=== PATIENT | female | born 1945 | race Caucasian/White ===

== ENCOUNTER 2018-09-23 10:30 | Inpatient (IN) ==
[2018-09-16 14:22] LABS: Basophils # (Auto) 0 K/mcL (0.0-0.3); Basophils % (Auto) 0.5 % (0.0-2.0); Eosinophils # (Auto) 0.3 K/mcL (0.0-0.7); Eosinophils % (Auto) 3.9 % (0.0-7.0); Granulocytes % (Auto) 53.9 % (38.0-78.0); Hematocrit 40.9 % (36.0-48.0); Hemoglobin 13.4 g/dL (12.0-15.0); Lymphocytes # (Auto) 2.7 K/mcL (1.5-4.8); Lymphocytes % (Auto) 36.5 % (15.5-49.0); Mean Cell Volume 87.6 fL (80.0-100.0); Mean Corpuscular HGB Conc 32.7 g/dL (31.0-36.0); Mean Platelet Volume 9.9 fL (7.4-10.4); Monocytes # (Auto) 0.4 K/mcL (0.1-0.9); Monocytes % (Auto) 5.2 % (1.0-12.0); Platelet Count 286 K/mcL (140-440); RBC 4.66 M/mcL (4.00-5.20); Red Cell Distribution Width 14.3 % (11.5-14.5); WBC 7.4 K/mcL (4.5-11.0)
[2018-09-16 14:49] LABS: Blood Urea Nitrogen 16 mg/dl (8-23); Calcium 8.9 mg/dl (8.6-10.4); Carbon Dioxide 23 mmol/L (22-30); Chloride 104 mmol/L (96-108); Glomerular Filtration Rate 64; Glucose 92 mg/dL (70-105); Potassium 3.9 mmol/L (3.3-5.1); Sodium 138 mmol/L (133-145)
[~2018-09-23 10:30] MED LIST: ceFAZolin 2 GM in DEXTROSE 5% IN WATER 50 ML IV SCH
[2018-09-23] MEDS ORDERED: SCOPOLAMINE 1 PATCH PATCH TOPICAL PRN (12:00)
[2018-09-23] MEDS ORDERED: IPRATROPIUM/ALBUTEROL 3 ML AMPUL.NEB NEB PRN ×2 (12:00→15:49)
[2018-09-23 13:18] LABS: Appearance,Urine CLEAR; Bilirubin,Urine NEG (NEG); Color,Urine YELLOW; Culture Indicated,Urine NO; Glucose,Urine (UA) NEGATIVE (NEG); Ketones,Urine NEG (NEG); Leukocyte Esterase,Urine NEG /uL (NEG); Nitrate,Urine NEG (NEG); Protein,Urine NEG (NEG); Urine Blood NEG mg/dL (<0.03); Urobilinogen,Urine NEG (NEG)
[2018-09-23] MEDS ORDERED: LIDOCAINE HCL/PF 100 MG/5 ML SYRINGE IV ONE (13:35)
[2018-09-23] MEDS ORDERED: PROPOFOL 200 MG/20 ML VIAL IV ONE (13:35)
[2018-09-23] MEDS ORDERED: HYDROmorphone 2 MG/ML VIAL IV ONE (13:35)
[2018-09-23] MEDS ORDERED: ROPIVACAINE HCL/PF 20 ML VIAL IJ ONE (13:35)
[2018-09-23] MEDS ORDERED: KETAMINE 100 MG/ML ML IV ONE (13:35)
[2018-09-23] MEDS ORDERED: MIDAZOLAM 2 MG/2 ML VIAL IV ONE (13:35)
[2018-09-23] MEDS ORDERED: DEXAMETHASONE 10 MG/ML VIAL IV ONE (13:35)
[2018-09-23] MEDS ORDERED: TRANEXAMIC ACID 1,000 MG/10 ML VIAL IV ONE ×2 (13:35→14:59)
[2018-09-23] MEDS ORDERED: fentaNYL 100 MCG/2 ML VIAL IV ONE (13:35)
[2018-09-23] MEDS ORDERED: ONDANSETRON 4 MG/2 ML VIAL IV ONE (13:35)
[2018-09-23] MEDS ORDERED: GLYCOPYRROLATE 0.2 MG/ML VIAL IV ONE (13:35)
[2018-09-23] MEDS ORDERED: GENTAMICIN SULFATE 800 MG/20 ML VIAL IR ONE (14:24)
--- NOTE | 2018-09-23 14:58 | Brief Operative Note ---
Date of procedure: 09/23/18 Pre-op diagnosis: left shoulder osteoarthritis, biceps tendonitis, rtc tear Post-op diagnosis: same Procedure: left reverse tsa, open biceps reinsertion Grafts/Implants: Yes Anesthesia: GETA Complications: none Surgeon: Juan Kebede Cigar Brander: Ruthann Gibbons Estimated blood loss (cc): 100 Specimens Removed/Pathology: none sent Condition: stable Disposition: PACU
[2018-09-23] MEDS ORDERED: POLYETHYLENE GLYCOL 3350 17 GM PACKET PO PRN (14:59)
[2018-09-23] MEDS ORDERED: FLEETS ADULT ENEMA PR PRN (14:59)
[2018-09-23] MEDS ORDERED: METHOCARBAMOL 750 MG TABLET PO PRN (14:59)
[2018-09-23] MEDS ORDERED: ONDANSETRON 4 MG ODT TABLET SL PRN (14:59)
[2018-09-23] MEDS ORDERED: HYDROcodone/APAP 10/325MG TABLET PO PRN (14:59)
[2018-09-23] MEDS ORDERED: BENZOCAINE/MENTHOL 1 LOZENGE PO PRN ×2 (14:59→15:49)
[2018-09-23] MEDS ORDERED: BISACODYL 10 MG SUPP.RECT PR PRN (14:59)
[2018-09-23] MEDS ORDERED: MAGNESIUM HYDROXIDE 30 ML ORAL.SUSP PO PRN (14:59)
--- NOTE | 2018-09-23 14:59 | Discharge Summary ---
Ortho Discharge - TSA - Patient Instructions Diet: Regular Diet Activity: non weight bearing Total Shoulder Protocol: Leave immobilizer in place except for bathing and ROM. Abduction pillow. Continue to wear sling until seen by physician. Codman Pendulum : These exercises use momentum produced by your body to move your shoulder joint. Bend your knees and shift your weight to your front leg, then back, allowing your arm to swing in the same directions. Using the same technique, alternately shift your weight between your right and left legs, allowing your arm to swing from side to side. These exercises are also performed in counterclockwise and clockwise circular motions. Typically these exercises are performed several times per day, for a set number repetitions or minutes, such as 20 times in a row or 5 minutes at a time. Dressing Care: May shower in 2 days - Follow Up Plan Follow Up Appointments: Juan Kebede MD [Physician] - 10/08/18 Disposition: Home, Self-Care Prognosis: Good Rehab Potential: Good I certify that the patient requires SNF services: No Overall status at discharge: patient is progressing back to baseline
[2018-09-23] MEDS ORDERED: COLCHICINE 0.6 MG TABLET PO PRN (15:02)
[2018-09-23] MEDS ORDERED: FLUTICASONE PROPIONATE SPRAY.NAS NS PRN (15:02)
[2018-09-23] MEDS ORDERED: ALPRAZolam 0.25 MG TABLET PO PRN (15:02)
--- NOTE | 2018-09-23 15:37 | Operative Note ---
DATE OF OPERATION: 09/23/2018 PREOPERATIVE DIAGNOSES: 1. Left shoulder advanced glenohumeral osteoarthritis. 2. Left shoulder rotator cuff tear. 3. Left shoulder proximal biceps tendinitis. POSTOPERATIVE DIAGNOSES: 1. Left shoulder advanced glenohumeral osteoarthritis. 2. Left shoulder rotator cuff tear. 3. Left shoulder proximal biceps tendinitis. PROCEDURE PERFORMED: 1. Left reverse total shoulder arthroplasty. 2. Left shoulder proximal biceps tenodesis. SURGEON: Smita Kebede M.D. GERMINATION WORKER SURGEON: Ruthann Gibbons PA-C. The PA's assistance was required for the safe and efficient completion of the entire case. This provider's expertise and technical skill were required throughout the case. The PA assisted with preoperative coordination, intraoperative retraction, wound closure, dressing and splint application, as well as postoperative documentation and care coordination. ANESTHESIA: General. ESTIMATED BLOOD LOSS: 100 mL. COMPLICATIONS: None noted. SPECIMENS REMOVED: None. DRAINS: None. IMPLANTS: DePuy Delta Xtend cementless Metaglene, HENRY-coated; DePuy Delta Xtend locking Metaglene screw 4.5 x 30 (x2) and 4.5 x 18 (x1) nonlocking; DePuy Delta Xtend glenosphere standard 38 mm; DePuy Delta Xtend modular humeral stem size 10, HENRY-coated, cementless; DePuy Delta Xtend modular eccentric epiphysis size 1 left, HENRY-coated, cementless; DePuy Delta Xtend humeral polyethylene cup standard 38, +3. INDICATIONS: The patient has had a longstanding history of worsening pain in the shoulder that has failed conservative treatment. Radiographs have confirmed advanced degenerative joint disease and a failed rotator cuff. After a long discussion about treatment options, the patient elected to proceed with a reverse total shoulder arthroplasty. The risks and benefits were discussed with the patient in detail including, but not limited to, the risks of anesthesia, problems with the heart or lungs related to anesthesia, infection, compromise or injury to the nerves and blood vessels, deep venous thrombosis, pulmonary embolism, pneumonia, continued pain after surgery, worsening pain or symptoms after surgery, swelling, loss of motion, instability, fracture, arm length discrepancy, and need for repeat surgery. DESCRIPTION OF PROCEDURE: The patient was seen in the preanesthesia waiting room where all questions were answered and the correct side and site were identified and marked. The patient was transferred to the operating room and administered the anesthetic and given preoperative antibiotics. A time-out was then called. The patient was placed in the modified beach chair position with all prominences well padded. The extremity was prepped and draped from the fingers up to the neck. A standard deltopectoral skin incision was created. Dissection was carried down to the deltopectoral groove and the cephalic vein was isolated medially and retracted laterally with the deltoid. Retractors were placed and the coracobrachialis was split up to the coracoacromial ligament allowing retraction of the conjoined tendon. We split the subscapularis 1 cm medial to the bicipital groove and extended the split into the rotator interval. This was tagged for later repair. The supraspinatus and infraspinatus had been previously torn and retracted. The biceps was cut and a soft tissue tenodesis was performed into the anterior shoulder with #2 FiberWire. A capsular release was performed in a posterior subperiosteal direction along the humerus. The humeral head was then dislocated. We established intramedullary access and hand reamed up to get good cortical chatter with the DePuy Delta XTEND reverse total shoulder instrumentation. We then used the intramedullary guide and set to about 5 degrees of retroversion. The proximal humerus cut was performed and osteophytes were removed. A metal protector plate was then placed. Attention was then turned to the glenoid. Retractors were placed for optimal visualization and the labrum was excised in its entirety. A centralizing Steinmann pin was placed just into the posterior inferior quadrant in a standard fashion. We reamed over the pin to remove all the cartilage and get to a good base for the prosthesis. The drill was then placed over for the central peg. A cementless Metaglene was then impacted into place. We then drilled, measured, and placed the four screws starting inferior, then superior, then anterior, and finally posterior. The superior locking screw was lined up at the base of the coracoid process. We then impacted the head onto the Metaglene and tightened down in a standard fashion. Attention was then turned back to the humerus. Proximal reaming was performed off the intramedullary guide into the humeral head, using the eccentric guide to allow best coverage. We again set version and broached up to a stable implant. Trials were placed and good tension, motion, and stability were obtained at this point. Trials were removed and the final press fit femoral prosthesis was impacted into place with measured version. The final polyethylene was placed and the shoulder was reduced and again checked for motion, tension, and stability. We irrigated with 3 liters of antibiotic saline and closed the subscapularis with # 2 FiberWire. We irrigated again and closed the deltopectoral interval with several # 0 Vicryl figure of eight sutures. The subcutaneous layer was closed with 2-0 Vicryl and the skin was closed with 4-0 Monocryl in a subcuticular fashion. A sterile pressure dressing was applied and the patient was placed into an abduction sling. All needle and sponge counts were correct. The patient was transferred to the recovery room in stable condition. [place]:suleiman Job ID: [id number] Doc ID: [id number] Smita Kebede MD
[2018-09-23] MEDS ORDERED: METHOCARBAMOL 1,000 MG/10 ML VIAL IV PRN (15:49)
[2018-09-23] MEDS ORDERED: NALOXONE HCL 0.4 MG/ML VIAL IV PRN (15:49)
[2018-09-23] MEDS ORDERED: ACETAMINOPHEN 1,000 MG/100 ML BOTTLE IV ONE (15:49)
[2018-09-23] MEDS ORDERED: ONDANSETRON 4 MG/2 ML VIAL IV PRN (15:49)
[2018-09-23] MEDS ORDERED: FLUMAZENIL 0.1 MG/ML ML IV PRN (15:49)
[2018-09-23] MEDS ORDERED: fentaNYL 100 MCG/2 ML VIAL IV PRN (15:49)
[2018-09-23] MEDS ORDERED: LACTATED RINGERS 250 ML IV PRN (15:49)
--- NOTE | 2018-09-23 15:59 | XRay Report ---
CLINICAL INFORMATION: Post-Op Total Shoulder COMPARISON: 05/28/2018 FINDINGS: Left total shoulder arthroplasty is anatomically aligned. No osseous abnormality. IMPRESSION: Negative Interpreted and Authenticated by: Juan Chandra 09/23/18
[2018-09-23] MEDS ORDERED: LACTATED RINGERS 1,000 ML IV SCH (16:00)
[2018-09-23] MEDS: ONDANSETRON 4 MG/2 ML VIAL IV PRN ×2 (17:45→22:03)
[2018-09-23] MEDS: 0.9 % SODIUM CHLORIDE 1,000 ML IV SCH (17:45)
[2018-09-23] MEDS ORDERED: SENNOSIDES 1 TABLET PO SCH (21:00)
[2018-09-23] MEDS ORDERED: amLODIPine 10 MG TABLET PO SCH (21:00)
[2018-09-23] MEDS ORDERED: ASPIRIN 325 MG ENTERIC COATED TABLET PO SCH (21:00)
[2018-09-23] MEDS ORDERED: LOSARTAN 50 MG TABLET PO SCH (21:00)
[2018-09-23] MEDS ORDERED: SIMVASTATIN 20 MG TABLET PO SCH (21:00)
[2018-09-23] MEDS: KETOROLAC 15 MG/ML VIAL IV PRN (22:04)
[2018-09-23] MEDS: ceFAZolin 1 GM VIAL IV SCH (22:27)
[2018-09-23] MEDS: DOCUSATE SODIUM 100 MG CAPSULE PO SCH (22:28)
[2018-09-23] MEDS: 0.9 % SODIUM CHLORIDE 10 ML SYRINGE IV SCH (23:38)
[2018-09-24] MEDS: 0.9 % SODIUM CHLORIDE 1,000 ML IV SCH ×2 (01:40→09:11)
[2018-09-24] MEDS: ONDANSETRON 4 MG/2 ML VIAL IV PRN (02:04)
[2018-09-24 05:43] LABS: Hematocrit 38.4 % (36.0-48.0); Hemoglobin 12.6 g/dL (12.0-15.0)
[2018-09-24] MEDS: 0.9 % SODIUM CHLORIDE 10 ML SYRINGE IV SCH (06:36)
[2018-09-24] MEDS: ceFAZolin 1 GM VIAL IV SCH (06:38)
[2018-09-24] MEDS ORDERED: SCOPOLAMINE 1 PATCH PATCH TOPICAL ONE (07:14)
[2018-09-24] MEDS ORDERED: OMEPRAZOLE 20 MG CAPSULE PO SCH (07:30)
[2018-09-24] MEDS ORDERED: LEVOTHYROXINE SODIUM 112 MCG TABLET PO SCH (07:30)
[2018-09-24] MEDS ORDERED: LEVOTHYROXINE 25 MCG TABLET PO SCH (07:30)
--- NOTE | 2018-09-24 07:46 | Orthopedic Progress Note ---
Subjective Patient information: Note initiated : 09/24/18 at 7:43 am Service Date, if different from initiated Date: [] Patient: Leslie Joseph 73 y/o F admitted on 09/23/18 for Left Reverse Total Shoulder Arthroplasty and Open . Chief Complaint: [POD #1 s/p left TSA Patient feeling quite nauseous throughout the night and throwing up. Denies dizziness, CP, SOB, numbness, tingling. Used IV morphine throughout the night as needed. Has some shoulder pain 07/30] Objective Vital signs: Vital Signs Temp Pulse Resp BP Pulse Ox 09/24/18 03:55 98.4 F 91 H 12 126/68 93 09/23/18 22:58 97.7 F 92 H 12 128/67 96 09/23/18 19:13 80 104/60 93 09/23/18 18:13 101 H 124/63 93 09/23/18 17:45 86 123/61 93 09/23/18 17:16 79 132/65 92 09/23/18 17:00 79 124/66 91 09/23/18 16:45 89 12 134/66 92 09/23/18 16:27 88 9 L 131/65 92 09/23/18 16:10 97.4 F 84 12 137/69 90 09/23/18 15:57 97.8 F 85 13 136/58 93 09/23/18 15:42 97.9 F 86 12 131/45 98 09/23/18 15:27 97.6 F 76 8 L 122/58 98 09/23/18 15:22 78 6 L 129/60 98 09/23/18 15:17 81 6 L 136/58 98 09/23/18 15:12 97.2 F 87 8 L 111/52 99 09/23/18 12:00 98.3 F 78 18 127/53 98 Intake and Output 09/23/18 09/24/18 09/24/18 21:59 05:59 13:59 Intake Total 1100 1140 Output Total 75 750 Balance 1025 390 Intake: IV 100 1040 Sodium Chloride 0.9% 1,000 ml @ 990 125 mls/hr IV .Q8H [facility] Rx#: [id number] Oral 100 IV - Manual Only 1000 Output: Void Amount 600 Emesis 75 150 Other: Urine Appearance Clear Urine Color Pale Urine Odor Normal Weight 217 lb 8 oz Intake & Output: Intake & Output 09/23/18 09/24/18 09/24/18 21:59 05:59 13:59 Intake Total 1100 1140 Output Total 75 750 Balance 1025 390 Weight 217 lb 8 oz Intake: IV 100 1040 Sodium Chloride 0.9% 1,000 ml @ 990 125 mls/hr IV .Q8H [facility] Rx#: [id number] Oral 100 IV - Manual Only 1000 Output: Void Amount 600 Emesis 75 150 Other: Urine Appearance Clear Urine Color Pale Urine Odor Normal Incision: Yes healing, No draining, No red, No swollen, No inflamed, Yes clean and dry Incision clean and dry: Yes Dressing: Yes clean, Yes dry, Yes intact Weight bearing status: non Neurological exam IM: Yes alert, Yes oriented X3, Yes motor sensory intact, Yes neurovascular intact - Periperhal Pulses Peripheral pulses: 2+: radial (L), radial (R) - Labs CBC & BMP: 09/24/18 04:15 09/16/18 11:24 Labs: 09/24/18 09/16/18 04:15 11:25 Hgb 12.6 13.4 Hct 38.4 40.9 Assessment and Plan (1) Osteoarthritis, shoulder POD #1 s/p left TSA: -will watch nausea and emesis. If stops, patient may d/c to home. Zofran Rx to home. Scope patch placed here today -NWB in sling -PT -pain control -f/u in 10-14 days for PO Status: Acute
[2018-09-24] MEDS ORDERED: POTASSIUM 99 MG PO SCH (09:00)
[2018-09-24] MEDS: KETOROLAC 15 MG/ML VIAL IV PRN (09:16)
[2018-09-24] MEDS: DOCUSATE SODIUM 100 MG CAPSULE PO SCH (09:46)
== END 2018-09-24 10:20 | disposition home or self-care (01) | DRG 483 ==
LOC: MEDSUR 11:52
PROVIDERS: ADMIT Orthopaedic Surgery Sports Medicine; ATTEND Orthopaedic Surgery Sports Medicine

== ENCOUNTER 2021-03-24 04:31 | Inpatient (IN) ==
--- NOTE | 2021-03-24 04:42 | Emergency Department Note ---
HPI General Chief complaint: Weakness Stated complaint: Weakness and dizzy after surgery Time Seen by Provider: 03/24/21 04:39 Source: patient Mode of arrival: EMS Limitations: no limitations History of Present Illness HPI Narrative: 75-year-old female with lumbar spinal stenosis and chronic back pain, anxiety, hypothyroidism, hypertension, and gout presenting with generalized weakness. She had a left hip replacement on Saturday and was discharged Saturday. Since she has been at home she has felt very weak and nauseous. She also feels like her chronic low back pain is flaring up. States she had one episode of vomiting this week after taking a pain pill. She reports cramping in her legs and feels dehydrated. Denies any fall or injury. No headache, blurry vision, cough, shortness of breath, abdominal pain, dysuria, or hematuria. States she takes an 81mg aspirin twice daily. Related Data Home Medications Medication Instructions Recorded Confirmed alprazolam 0.25 mg tablet 0.25 mg PO DAILYP PRN 07/03/18 03/20/21 aspirin 325 mg tablet 325 mg PO HS 07/03/18 03/20/21 colchicine 0.6 mg capsule 0.6 mg PO DAILYP PRN 07/03/18 03/20/21 losartan 100 mg tablet 100 mg PO HS 07/03/18 03/20/21 simvastatin 20 mg tablet 20 mg PO HS 07/03/18 03/20/21 acetaminophen 500 mg tablet 500 - 1,000 mg PO BIDP PRN 09/16/18 03/20/21 estradiol 1 mg tablet 1 mg PO QAM 09/16/18 03/20/21 multivitamin-iron 9 mg-folic acid 1 tab PO HS 09/16/18 03/20/21 400 mcg-calcium and minerals tablet ibuprofen 200 mg capsule 200 mg PO Q4HP PRN cap 11/16/20 03/20/21 loratadine 10 mg tablet (Claritin) 10 mg PO QAM 11/16/20 03/20/21 montelukast 10 mg tablet 10 mg PO QHS 11/16/20 03/20/21 potassium chloride 10 mEq 10 meq PO DAILYP PRN 11/16/20 03/20/21 capsule,extended release torsemide 20 mg tablet 10 mg PO DAILYP PRN tab 11/16/20 03/20/21 cholecalciferol (vitamin D3) 25 25 mcg PO QAM 03/13/21 03/20/21 mcg (1,000 unit) capsule (Vitamin D3) levothyroxine 150 mcg tablet 150 mcg PO QAMAC 03/13/21 03/20/21 magnesium 250 mg tablet 500 mg PO QAM 03/13/21 03/20/21 methocarbamol 500 mg tablet 500 mg PO QHS 03/13/21 03/20/21 omeprazole 20 mg capsule,delayed 20 mg PO QAM 03/13/21 03/20/21 release potassium 99 mg tablet 99 mg PO QAM 03/13/21 03/20/21 Previous Rx's Medication Instructions Recorded aspirin 81 mg tablet,delayed 81 mg PO BID #60 tab 03/20/21 release (Ecotrin Low Strength) docusate sodium 100 mg capsule 100 mg PO BID #60 cap 03/20/21 hydrocodone 10 mg-acetaminophen 1 - 2 tab PO Q4HP PRN #75 tab 03/20/21 325 mg tablet ondansetron HCl 4 mg tablet 4 mg PO Q6H PRN #25 tab 03/21/21 (Zofran) Allergies Allergy/AdvReac Type Severity Reaction Status Date / Time tramadol AdvReac Intermediate Panic Verified 03/24/21 04:34 attacks codeine [Codeine] AdvReac Mild Nausea Verified 03/24/21 04:34 phenytoin [From Dilantin] AdvReac Mild MOUTH SORES Verified 03/24/21 04:34 Review of Systems ROS ROS Narrative: Narrative: Constitutional: Denies fever or chills Eyes: Denies vision change ENT ED: Denies throat pain Cardiovascular: Denies chest pain, palpitations or syncope Respiratory: Denies shortness of breath or cough Gastrointestinal: Reports nausea and vomiting; Denies abdominal pain Genitourinary: Denies dysuria or frequency Musculoskeletal: Reports back pain and muscle cramps Integumentary: Denies rash Neurological: Reports weakness and dizziness; Denies headache, numbness or confusion Psychiatric: Denies anxiety Endocrine: Reports fatigue PFSH Narrative Patient History Narrative: Narrative: Medical/Surgical/Family History All Active Problems (Updated 03/24/21 @ 06:56 by Chad Mckeon MD) Hyponatremia (Acute) Other low back pain (Acute) Morbid obesity (Chronic) Lumbar stenosis with neurogenic claudication (Chronic) Radiculopathy, lumbar region (Acute) Anxiety (Chronic) Hypothyroidism (Chronic) Essential hypertension (Chronic) GERD (gastroesophageal reflux disease) (Chronic) Hormone replacement therapy (Chronic) Mixed hyperlipidemia (Chronic) Venous stasis of both lower extremities (Chronic) Tendonitis of shoulder, left (Chronic) Gout (Chronic) CASTA[place]EDA (dyspnea on exertion) (Chronic) Lightheadedness (Chronic) Sinus headache (Chronic) Shoulder joint painful on movement (Chronic) Post menopausal syndrome (Chronic) Impacted cerumen (Chronic) Claustrophobia (Chronic) Allergic conjunctivitis (Chronic) Hyponatremia (Chronic) Generalized anxiety disorder (Chronic) Dyslipidemia (Chronic) Candidal intertrigo (Chronic) Lumbar spinal stenosis (Chronic) Urinary tract infection (Chronic) Bilateral leg cramps (Chronic) Osteoarthritis, shoulder (Chronic) Medical History (Updated 03/24/21 @ 06:56 by Chad Mckeon MD) Allergic conjunctivitis Anxiety Bilateral leg cramps Candidal intertrigo Claustrophobia CASTAÑEDA (dyspnea on exertion) Dyslipidemia Essential hypertension Generalized anxiety disorder GERD (gastroesophageal reflux disease) Gout Hormone replacement therapy Hyponatremia Hypothyroidism Impacted cerumen Lightheadedness Lumbar spinal stenosis Lumbar stenosis with neurogenic claudication Mixed hyperlipidemia Morbid obesity Osteoarthritis, shoulder Post menopausal syndrome Shoulder joint painful on movement Sinus headache Tendonitis of shoulder, left Urinary tract infection Venous stasis of both lower extremities Surgical History (Updated 12/06/20 @ 10:59 by Sanjuana Deras) History of section 1976, 1983 History of cholecystectomy (~1993) History of colonoscopy (05/08/18) History of esophagogastroduodenoscopy (EGD) (07/07/13) History of hysterectomy (~2000) History of knee surgery (10/01/06) bilateral replacements History of left shoulder replacement (09/23/18) History of tonsillectomy and adenoidectomy History of tubal ligation (~1983) Family History (Updated 11/16/20 @ 12:35 by Diamante Rose) Sister Myocardial infarction, Onset Age: 50 Arthritis Fibromyalgia Parkinsons disease, Onset Age: 57 Tremor Thyroid disorder Brother Alcoholism Cirrhosis of liver, Onset Age: 71 Tremor Father , age 77 Head and neck cancer Mother , age 48 Depression Thyroid disorder Daughter Depression Thyroid disorder Social History Smoking Status: Never smoker Alcohol Intake Frequency: does not drink Substance Use: does not use Exam Narrative Narrative: Narrative: General Limitations: no limitations General appearance: Present alert and in no apparent distress Head Head: Present atraumatic and normocephalic Eye Eye: Present normal appearance, PERRL and EOMI; Absent scleral icterus, conjunctival injection or nystagmus ENT ENT: Present mucous membranes moist Neck Neck: Present full ROM and trachea midline Chest Chest: Present symmetric chest wall rise Respiratory Respiratory: Present normal lung sounds bilaterally; Absent respiratory distress, wheezes, stridor or accessory muscle use Cardiovascular Cardiovascular: Present regular rate and normal rhythm; Absent systolic murmur or diastolic murmur Adbominal Abdominal: Present soft; Absent distention, tenderness, guarding, rebound or rigidity Extremities Extremities: Present other (Trace bilateral lower extremity edema. Left hip postsurgical site bandage is clean, without drainage or blood) Back Back: Absent CVA tenderness (R), CVA tenderness (L) or spinous process tenderness Neurological Neurological: Present alert, oriented X3 and CN II-XII intact; Absent motor sen kait deficit Expanded Neurological Patient oriented to: Present person, place and time Speech: Absent dysarthria CEREBELLAR FUNCTION: finger to nose: Normal Motor strength - LUE: 5/5 Motor strength - RUE: 5/5 Motor strength - LLE: 5/5 Motor strength - RLE: 5/5 SENSORY EXAM UPPER EXTREMITY: Normal: light touch SENSORY EXAM LOWER EXTREMITY: Normal: light touch Coma Scale Eye Opening: Spontaneous Coma Scale Motor Response: Obeys Commands Coma Scale Verbal Response: Oriented Coma Scale Total: 15 Psychiatric Psychiatric: Present normal affect and normal mood Skin Skin: Present warm (WNL) and dry Course Consultations Consultation #1: Dr. Sumner, hospitalist Time: 06:50 Vital Signs Vital signs: Vital Signs Temperature 97.7 F 03/24/21 04:35 Pulse Rate 104 H 03/24/21 04:35 Blood Pressure 139/65 03/24/21 04:35 Pulse Oximetry (%) 98 03/24/21 04:35 Temperature 97.7 F 03/24/21 04:51 Pulse Rate 91 H 03/24/21 06:43 Respiratory Rate 16 03/24/21 04:51 Blood Pressure 143/54 03/24/21 06:31 Pulse Oximetry (%) 94 03/24/21 06:43 MDM MDM Narrative Medical decision making narrative: 75-year-old female presenting with generalized weakness and feelings of dehydration. Vital signs are normal. No focal neurologic deficits on exam. Surgical site appears well-healing. EKG with no ischemic changes. Will obtain labs, chest x-ray, and UA. Normal saline bolus and IV morphine ordered. Labs notable for hyponatremia to 124. She does have a mild leukocytosis to 13 but this is in the setting of recent surgery. Given her generalized weakness and hyponatremia will admit for hydration and further management. UA is pending. Patient endorsed to Dr. Sumner for admission. Lab Data Lab results reviewed: Yes I reviewed the patient's lab results. Result diagrams: 03/24/21 05:26 03/24/21 05:25 Labs: Lab Results 03/24/21 03/24/21 03/24/21 Range/Units 05:25 05:26 05:26 WBC 13.0 H (4.5-11.0) K/mcL RBC 3.61 (3.59-5.38) M/mcL Hgb 10.1 L (11.2-15.7) g/dL Hct 31.7 L (34.1-44.9) % MCV 87.8 (80.0-100.0) fL MCH 28.0 (26.0-34.0) pg MCHC 31.9 (31.0-36.0) g/dL RDW 13.7 (11.5-14.5) % Plt Count 312 (140-440) K/mcL MPV 10.6 H (7.4-10.4) fL Neut % (Auto) 80.9 H (38.0-78.0) % Lymph % (Auto) 9.3 L (15.5-49.0) % [place]aca % (Auto) 7.1 (1.0-12.0) % Eos % (Auto) 2.2 (0.0-7.0) % Baso % (Auto) 0.5 (0.0-2.0) % Lymph # (Auto) 1.21 L (1.50-4.80) K/mcL [place] # (Auto) 0.92 H (0.10-0.90) K/mcL Eos # (Auto) 0.29 (0.00-0.70) K/mcL Baso # (Auto) 0.06 (0.00-0.30) K/mcL Absolute Neutrophils 10.55 H (1.80-8.00) K/mcL Sodium 124 L (133-145) mmol/L Potassium 4.0 (3.3-5.1) mmol/L Chloride 90 L (96-108) mmol/L Carbon Dioxide 23 (22-30) mmol/L Anion Gap 11.0 (8.0-16.0) BUN 21 (8-23) mg/dL Creatinine 1.1 (0.6-1.1) mg/dL GFR Calculation 49 Glucose 138 H (70-105) mg/dL Calcium 9.0 (8.6-10.4) mg/dL Magnesium 1.9 (1.6-2.5) mg/dL Total Bilirubin 0.5 (0.1-1.0) mg/dL AST 52 H (<32) U/L ALT 19 (<40) U/L Alkaline Phosphatase 99 (39-117) U/L Troponin T < 0.01 (<0.03) ng/mL Total Protein 6.9 (5.9-8.4) gm/dL Albumin 3.5 (3.2-5.2) gm/dL Globulin 3.4 (2.2-3.7) gm/dL Albumin/Globulin Ratio 1.0 (1.0-2.3) Radiology Data Radiology results reviewed: Yes I reviewed the patient's radiology results. Radiology results narrative: CXR: No focal infiltrate, per my interpretation. EKG Data EKG #1: EKG attestation: Yes I reviewed and interpreted this EKG. and Yes There are no EKG findings of acute coronary syndrome EKG results narrative: Normal sinus rhythm at [address] elevation or depression. Evidence of LVH. Interpretation: no acute changes Discharge Plan Patient/Caregiver Discharge Instructions Pt seen by BIODIESEL PRODUCT DEVELOPMENT MANAGER/PA only: No Clinical Impression: Hyponatremia Patient Disposition: Xfer As Inpt ([facility]) Condition: Fair Follow up with: Tiffanie Ortiz MD [Primary Care Provider] - Prescriptions: No Action loratadine [Claritin] 10 mg tablet 10 mg PO QAM 0RF ibuprofen 200 mg capsule 200 mg PO Q4HP PRN (Reason: Pain) 0RF montelukast 10 mg tablet 10 mg PO QHS 0RF potassium chloride 10 mEq capsule, extended release 10 meq PO DAILYP PRN (Reason: Edema) 0RF Rx Instructions: Take with waterpill torsemide 20 mg tablet 10 mg PO DAILYP PRN (Reason: Edema) 0RF simvastatin 20 mg tablet 20 mg PO HS 0RF losartan 100 mg tablet 100 mg PO HS 0RF aspirin 325 mg tablet 325 mg PO HS 0RF Label Comments: HOLDING FOR SURGERY alprazolam 0.25 mg tablet 0.25 mg PO DAILYP PRN (Reason: Anxiety) 0RF colchicine 0.6 mg capsule 0.6 mg PO DAILYP PRN (Reason: GOUT) 0RF acetaminophen 500 MG tablet 500 - 1,000 mg PO BIDP PRN (Reason: Pain) 0RF estradiol 1 MG tablet 1 mg PO QAM 0RF jfuddijq-wbsr-KH-calcium-mins 1 TAB tablet 1 tab PO HS 0RF methocarbamol 500 mg Tablet 500 mg PO QHS 0RF potassium 99 mg Tablet 99 mg PO QAM 0RF Rx Instructions: Take when not taking waterpill omeprazole 20 mg Capsule,Delayed Release(Dr/Ec) 20 mg PO QAM 0RF magnesium 250 mg Tablet 500 mg PO QAM 0RF cholecalciferol (vitamin D3) [Vitamin D3] 25 mcg (1,000 unit) Capsule 25 mcg PO QAM 0RF levothyroxine 150 mcg Tablet 150 mcg PO QAMAC 0RF docusate sodium 100 mg Capsule 100 mg PO BID Qty: 60 0RF hydrocodone-acetaminophen 10-325 mg Tablet 1 - 2 tab PO Q4HP PRN (Reason: Per Pain Protocol) Qty: 75 0RF aspirin [Ecotrin Low Strength] 81 mg tablet,delayed release (DR/EC) 81 mg PO BID Qty: 60 0RF ondansetron HCl [Zofran] 4 mg Tablet 4 mg PO Q6H PRN (Reason: Nausea) Qty: 25 0RF
[2021-03-24] MEDS ORDERED: morphine 4 MG/ML VIAL IV ONE (04:48)
[2021-03-24] MEDS ORDERED: 0.9 % SODIUM CHLORIDE 1,000 ML IV ONE (04:48)
[2021-03-24 05:50] LABS: Basophils # (Auto) 0.06 K/mcL (0.00-0.30); Basophils % (Auto) 0.5 % (0.0-2.0); Eosinophils # (Auto) 0.29 K/mcL (0.00-0.70); Eosinophils % (Auto) 2.2 % (0.0-7.0); Hematocrit 31.7 % (34.1-44.9); Hemoglobin 10.1 g/dL (11.2-15.7); Lymphocytes # (Auto) 1.21 K/mcL (1.50-4.80); Lymphocytes % (Auto) 9.3 % (15.5-49.0); Mean Cell Volume 87.8 fL (80.0-100.0); Mean Corpuscular HGB Conc 31.9 g/dL (31.0-36.0); Mean Platelet Volume 10.6 fL (7.4-10.4); Monocytes # (Auto) 0.92 K/mcL (0.10-0.90); Monocytes % (Auto) 7.1 % (1.0-12.0); Neutrophils % (Auto) 80.9 % (38.0-78.0); Platelet Count 312 K/mcL (140-440); RBC 3.61 M/mcL (3.59-5.38); Red Cell Distribution Width 13.7 % (11.5-14.5)
[2021-03-24 06:16] LABS: ALT/SGPT 19 U/L (<40); AST/SGOT 52 U/L (<32); Albumin 3.5 gm/dL (3.2-5.2); Alkaline Phosphatase 99 U/L (39-117); Bilirubin,Total 0.5 mg/dL (0.1-1.0); Blood Urea Nitrogen 21 mg/dL (8-23); Carbon Dioxide 23 mmol/L (22-30); Chloride 90 mmol/L (96-108); Globulin 3.4 gm/dL (2.2-3.7); Glomerular Filtration Rate 49; Glucose 138 mg/dL (70-105)
--- NOTE | 2021-03-24 06:38 | XRay Report ---
INDICATION: weakness, recent hip replacement TECHNIQUE: AP portable semiupright chest x-ray COMPARISON: Previous examination dated 06/04/2009 FINDINGS: Lungs:Mild linear density at the left lung base consistent with atelectasis. Lungs are otherwise negative. Heart, vascular:No significant cardiomegaly. Pulmonary vascularity is normal. No pulmonary edema or pulmonary congestion Mediastinum, brianne:No mediastinal widening. No hilar mass Pleura:No pleural fluid. No pleural-based mass or calcification Skeletal:Negative. Previous left reverse shoulder arthroplasty IMPRESSION: 1. Findings consistent with mild left basilar atelectasis 2. Otherwise negative AP chest x-ray Interpreted and Authenticated by: Juan Holloway 03/24/21
[2021-03-24] MEDS ORDERED: ACETAMINOPHEN 650 MG/65 ML BAG IV PRN (08:03)
[2021-03-24] MEDS ORDERED: MAGNESIUM SULFATE 2 GM/50 ML BAG IV PRN (08:03)
[2021-03-24] MEDS ORDERED: POLYETHYLENE GLYCOL 3350 17 GM PACKET PO PRN (08:03)
[2021-03-24] MEDS ORDERED: MELATONIN 3 MG TABLET PO PRN (08:03)
[2021-03-24] MEDS ORDERED: ACETAMINOPHEN 325 MG TABLET PO PRN (08:03)
[2021-03-24] MEDS ORDERED: POTASSIUM CHLORIDE 40 MEQ in DEXTROSE 5% IN WATER 500 ML IV PRN (08:03)
[2021-03-24] MEDS ORDERED: BISACODYL 10 MG SUPP.RECT PR PRN (08:03)
[2021-03-24] MEDS ORDERED: ONDANSETRON 4 MG/2 ML VIAL IV PRN (08:03)
--- NOTE | 2021-03-24 08:06 | Internal Med History&Physical ---
HPI History of Present Illness Patient information: Note initiated : 03/24/21 at 8:06 am Service Date, if different from initiated Date: [] Patient: Leslie Joseph a 75 y/o F admitted on for Weakness and dizzy after surgery. Chief Complaint: [] History of present illness: Ms. Joseph is a 75 year old F who lives with her daughter in [place] and with a complex medical history including lumbar spinal stenosis chronic lower back pain, gout, hypertension, anxiety disorder, hypothyroidism who presents to the ER after recent hospitalization for left hip arthroplasty a week ago. Patient complains that ever since discharge she has been getting increasingly fatigued and weak unable to function along with progressive lower back pain, nausea. She has been taking her medications but has experienced associated loss of appetite, malaise along with associated lower extremity cramping. She presents to the ER for evaluation. Initial work-up was consistent with medical hyponatremia at 124 compared to recent level 135 on 03/13. Hospital service was consulted in light of above/symptomatic hyponatremia At the time of my evaluation patient is alert but anxious. She complains of lower back pain. She received a dose of morphine which has helped take the edge off pain. She denies bladder or bowel incontinence or unilateral leg weakness. She denies shooting pain, endorses to weakness fatigue but has been able to bear weight since surgery. She denies cough, fever, chest pain, recent sick contacts Review of systems A 10 point review of system was performed and is negative except for ones discussed above PFSH PFSH All Active Problems (Updated 03/24/21 @ 06:56 by Chad Mckeon MD) Hyponatremia (Acute) Other low back pain (Acute) Morbid obesity (Chronic) Lumbar stenosis with neurogenic claudication (Chronic) Radiculopathy, lumbar region (Acute) Anxiety (Chronic) Hypothyroidism (Chronic) Essential hypertension (Chronic) GERD (gastroesophageal reflux disease) (Chronic) Hormone replacement therapy (Chronic) Mixed hyperlipidemia (Chronic) Venous stasis of both lower extremities (Chronic) Tendonitis of shoulder, left (Chronic) Gout (Chronic) [place] (dyspnea on exertion) (Chronic) Lightheadedness (Chronic) Sinus headache (Chronic) Shoulder joint painful on movement (Chronic) Post menopausal syndrome (Chronic) Impacted cerumen (Chronic) Claustrophobia (Chronic) Allergic conjunctivitis (Chronic) Hyponatremia (Chronic) Generalized anxiety disorder (Chronic) Dyslipidemia (Chronic) Candidal intertrigo (Chronic) Lumbar spinal stenosis (Chronic) Urinary tract infection (Chronic) Bilateral leg cramps (Chronic) Osteoarthritis, shoulder (Chronic) Medical History (Updated 03/24/21 @ 06:56 by Chad Mckeon MD) Allergic conjunctivitis Anxiety Bilateral leg cramps Candidal intertrigo Claustrophobia [place] (dyspnea on exertion) Dyslipidemia Essential hypertension Generalized anxiety disorder GERD (gastroesophageal reflux disease) Gout Hormone replacement therapy Hyponatremia Hypothyroidism Impacted cerumen Lightheadedness Lumbar spinal stenosis Lumbar stenosis with neurogenic claudication Mixed hyperlipidemia Morbid obesity Osteoarthritis, shoulder Post menopausal syndrome Shoulder joint painful on movement Sinus headache Tendonitis of shoulder, left Urinary tract infection Venous stasis of both lower extremities Surgical History (Updated 12/06/20 @ 10:59 by Sanjuana Deras) History of section 1976, 1983 History of cholecystectomy (~1993) History of colonoscopy (05/08/18) History of esophagogastroduodenoscopy (EGD) (07/07/13) History of hysterectomy (~2000) History of knee surgery (10/01/06) bilateral replacements History of left shoulder replacement (09/23/18) History of tonsillectomy and adenoidectomy History of tubal ligation (~1983) Family History (Updated 11/16/20 @ 12:35 by Diamante Rose) Sister Myocardial infarction, Onset Age: 50 Arthritis Fibromyalgia Parkinsons disease, Onset Age: 57 Tremor Thyroid disorder Brother Alcoholism Cirrhosis of liver, Onset Age: 71 Tremor Father , age 77 Head and neck cancer Mother , age 48 Depression Thyroid disorder Daughter Depression Thyroid disorder Social History (Updated 12/06/20 @ 11:00 by Sanjuana Deras) household members: family marital status: education level: master's degree occupational status: retired 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 smoking status: Never smoker alcohol intake frequency: does not drink substance use type: does not use MEDS/ALLERGIES Home Medications and Allergies Home Medications Medication Instructions Recorded Confirmed Type alprazolam 0.25 mg tablet 0.25 mg PO DAILYP PRN 07/03/18 03/24/21 History aspirin 325 mg tablet 325 mg PO HS 07/03/18 03/24/21 History colchicine 0.6 mg capsule 0.6 mg PO DAILYP PRN 07/03/18 03/24/21 History losartan 100 mg tablet 100 mg PO HS 07/03/18 03/24/21 History simvastatin 20 mg tablet 20 mg PO HS 07/03/18 03/24/21 History acetaminophen 500 mg tablet 500 - 1,000 mg PO BIDP PRN 09/16/18 03/24/21 History estradiol 1 mg tablet 1 mg PO QAM 09/16/18 03/24/21 History multivitamin-iron 9 mg-folic acid 1 tab PO DAILY 09/16/18 03/24/21 History 400 mcg-calcium and minerals tablet ibuprofen 200 mg capsule 200 mg PO Q4HP PRN cap 11/16/20 03/24/21 History loratadine 10 mg tablet (Claritin) 10 mg PO QAM 11/16/20 03/24/21 History montelukast 10 mg tablet 10 mg PO QHS 11/16/20 03/24/21 History potassium chloride 10 mEq 10 meq PO DAILYP PRN 11/16/20 03/24/21 History capsule,extended release torsemide 20 mg tablet 10 mg PO DAILYP PRN tab 11/16/20 03/24/21 History cholecalciferol (vitamin D3) 25 25 mcg PO QAM 03/13/21 03/24/21 History mcg (1,000 unit) capsule (Vitamin D3) levothyroxine 150 mcg tablet 150 mcg PO QAMAC 03/13/21 03/24/21 History magnesium 250 mg tablet 500 mg PO QAM 03/13/21 03/24/21 History methocarbamol 500 mg tablet 500 mg PO QHS 03/13/21 03/24/21 History omeprazole 20 mg capsule,delayed 20 mg PO QAM 03/13/21 03/24/21 History release potassium 99 mg tablet 99 mg PO QAM 03/13/21 03/24/21 History aspirin 81 mg tablet,delayed 81 mg PO BID #60 tab 03/20/21 03/24/21 Rx release (Ecotrin Low Strength) docusate sodium 100 mg capsule 100 mg PO BID #60 cap 03/20/21 03/24/21 Rx hydrocodone 10 mg-acetaminophen 1 - 2 tab PO Q4HP PRN #75 tab 03/20/21 03/24/21 Rx 325 mg tablet ondansetron HCl 4 mg tablet 4 mg PO Q6H PRN #25 tab 03/21/21 03/24/21 Rx (Zofran) Allergies Allergy/AdvReac Type Severity Reaction Status Date / Time tramadol AdvReac Intermediate Panic Verified 03/24/21 04:34 attacks codeine [Codeine] AdvReac Mild Nausea Verified 03/24/21 04:34 phenytoin [From Dilantin] AdvReac Mild MOUTH SORES Verified 03/24/21 04:34 EXAM Constitutional Vitals: Temp Pulse Resp BP Pulse Ox 97.7 F 91 H 16 143/54 94 03/24/21 04:51 03/24/21 06:43 03/24/21 04:51 03/24/21 06:31 03/24/21 06:43 Morbidly obese, anxious Head normocephalic Oral cavity moist No ear or nose discharge Eye no subconjunctival pallor, movement symmetrical S1-S2 regular Nonlabored breathing Nondistended nontender abdomen Lower extremity no cyanosis clubbing or joint swelling Skin no suspicious lesion Psych anxious Neuro GCS 12, symmetric strength DATA Data Completed and Pending Labs: Labs from last 24 hours 03/24/21 03/24/21 03/24/21 07:19 05:26 05:26 WBC 13.0 H RBC 3.61 Hgb 10.1 L Hct 31.7 L MCV 87.8 MCH 28.0 MCHC 31.9 RDW 13.7 Plt Count 312 MPV 10.6 H Neut % (Auto) 80.9 H Lymph % (Auto) 9.3 L [place] % (Auto) 7.1 Eos % (Auto) 2.2 Baso % (Auto) 0.5 Lymph # (Auto) 1.21 L [place] # (Auto) 0.92 H Eos # (Auto) 0.29 Baso # (Auto) 0.06 Absolute Neutrophils 10.55 H Sodium Potassium Chloride Carbon Dioxide Anion Gap BUN Creatinine GFR Calculation Glucose Calcium Magnesium Total Bilirubin AST ALT Alkaline Phosphatase Troponin T < 0.01 Total Protein Albumin Globulin Albumin/Globulin Ratio Urine Color Pending Urine Appearance Pending Urine pH Pending Ur Specific [place] Pending Urine Protein Pending Urine Glucose (UA) Pending Urine Ketones Pending Urine Occult Blood Pending Urine Nitrate Pending Urine Bilirubin Pending Urine Urobilinogen Pending Ur Leukocyte Esterase Pending 03/24/21 05:25 WBC RBC Hgb Hct MCV MCH MCHC RDW Plt Count MPV Neut % (Auto) Lymph % (Auto) [place] % (Auto) Eos % (Auto) Baso % (Auto) Lymph # (Auto) [place] # (Auto) Eos # (Auto) Baso # (Auto) Absolute Neutrophils Sodium 124 L Potassium 4.0 Chloride 90 L Carbon Dioxide 23 Anion Gap 11.0 BUN 21 Creatinine 1.1 GFR Calculation 49 Glucose 138 H Calcium 9.0 Magnesium 1.9 Total Bilirubin 0.5 AST 52 H ALT 19 Alkaline Phosphatase 99 Troponin T Total Protein 6.9 Albumin 3.5 Globulin 3.4 Albumin/Globulin Ratio 1.0 Urine Color Urine Appearance Urine pH Ur Specific [place] Urine Protein Urine Glucose (UA) Urine Ketones Urine Occult Blood Urine Nitrate Urine Bilirubin Urine Urobilinogen Ur Leukocyte Esterase A/P Narrative A/P Narrative: * Symptomatic hyponatremia, rule out SIADH. Urine serum osmolarity/every 4 sodium checks. * Recent left total hip arthroplasty-continue physical therapies * Lumbar spinal stenosis/lower back pain continue home dose opioids/lidocaine patch/physical therapy * Hyperlipemia continue statin * Morbid obesity frequent turning/repositioning/decubitus care and maintain fall risk. Directed therapies including dietary interventions * GERD continue PPI * Hypertension continue losartan * Hypothyroidism continue thyroxine * History of gout currently stable * Prophylaxis Heparin Plan * Inpatient admission * Telemetry monitoring * Every 4 sodium checks * Pre-existing medical condition management home medication * PT OT/directed therapies/nutrition support * Discharge planning Time Spent With Patient Time: Total time spent is greater than 50% in coordination of care (as documented) at patient's floor/unit and/or counseling patient: Total time spent with greater than 50% in coordination of care (as documented) at patient's floor/unit and/or counseling patient:: Greater than 35 minutes
[2021-03-24 09:06] LABS: Appearance,Urine CLEAR (Clear); Bilirubin,Urine Negative (Negative); Color,Urine STRAW; Culture Indicated,Urine No; Glucose,Urine (UA) Negative (Negative); Ketones,Urine Negative (Negative); Leukocyte Esterase,Urine Negative /uL (Negative); Nitrate,Urine Negative (Negative); Protein,Urine Negative (Negative); Specific Gravity,Urine 1.008 (1.000-1.035); Urine Blood 0.03 mg/dL (Negative); Urine RBC 1 /hpf (0-3); Urine Squamous Epithelial Cell 2 /hpf (0-4); Urine WBC < 1 /hpf (0-4); Urobilinogen,Urine Negative
[2021-03-24] MEDS: 0.9 % SODIUM CHLORIDE 1,000 ML IV SCH (09:56)
[2021-03-24] MEDS ORDERED: ACETAMINOPHEN 500 MG TABLET PO PRN (11:12)
[2021-03-24] MEDS ORDERED: COLCHICINE 0.6 MG CAPSULE PO PRN (11:12)
[2021-03-24] MEDS ORDERED: ONDANSETRON HCL 4 MG PO PRN (11:12)
[2021-03-24] MEDS ORDERED: TORSEMIDE 10 MG TABLET PO PRN (11:18)
[2021-03-24] MEDS ORDERED: POTASSIUM CHLORIDE 10 MEQ TABLET PO PRN (11:19)
[2021-03-24] MEDS: HEPARIN 5,000 UNIT/ML VIAL SQ SCH ×2 (12:11→21:09)
[2021-03-24] MEDS: 0.9 % SODIUM CHLORIDE 10 ML SYRINGE IV SCH ×2 (12:12→21:10)
[2021-03-24] MEDS: DOCUSATE SODIUM 100 MG CAPSULE PO SCH ×3 (12:12→21:10)
[2021-03-24] MEDS: MULTIVIT,THER IRON,CA,FA & MIN 1 TABLET PO SCH (12:12)
[2021-03-24] MEDS: morphine 2 MG/ML VIAL IV PRN ×4 (12:14→23:31)
[2021-03-24] MEDS: HYDROcodone/APAP 10/325MG TABLET PO PRN ×3 (13:21→18:38)
[2021-03-24] MEDS: ONDANSETRON 4 MG ODT TABLET SL PRN ×2 (17:36→22:05)
[2021-03-24] MEDS ORDERED: HYDROcodone/APAP 10/325MG TABLET PO ONE (17:38)
[2021-03-24] MEDS ORDERED: LIDOCAINE PATCH TOPICAL ONE (20:54)
[2021-03-24] MEDS ORDERED: NON FORMULARY MEDICATION 1 DOSE MISCELL (Aspirin [Ecotrin Low Strength] 81 mg tablet,delay PO SCH (21:00)
[2021-03-24] MEDS ORDERED: morphine 2 MG/ML VIAL ONE (21:06)
[2021-03-24] MEDS: LOSARTAN 50 MG TABLET PO SCH (21:09)
[2021-03-24] MEDS: SENNOSIDES/DOCUSATE SODIUM 1 TAB TABLET PO SCH (21:09)
[2021-03-24] MEDS: MONTELUKAST 10 MG TABLET PO SCH (21:09)
[2021-03-24] MEDS: METHOCARBAMOL 500 MG TABLET PO SCH (21:10)
[2021-03-24] MEDS: ASPIRIN 325 MG ENTERIC COATED TABLET PO SCH (21:10)
[2021-03-24] MEDS: SIMVASTATIN 20 MG TABLET PO SCH (21:10)
[2021-03-25] MEDS: HYDROcodone/APAP 10/325MG TABLET PO PRN ×5 (02:55→21:42)
[2021-03-25] MEDS: 0.9 % SODIUM CHLORIDE 1,000 ML IV SCH (06:25)
[2021-03-25] MEDS: 0.9 % SODIUM CHLORIDE 10 ML SYRINGE IV SCH ×3 (06:25→21:44)
[2021-03-25 07:09] LABS: Basophils # (Auto) 0.07 K/mcL (0.00-0.30); Basophils % (Auto) 0.8 % (0.0-2.0); Eosinophils # (Auto) 0.48 K/mcL (0.00-0.70); Eosinophils % (Auto) 5.7 % (0.0-7.0); Lymphocytes # (Auto) 1.84 K/mcL (1.50-4.80); Mean Cell Volume 88.6 fL (80.0-100.0); Mean Corpuscular HGB Conc 32.1 g/dL (31.0-36.0); Mean Platelet Volume 10.2 fL (7.4-10.4); Monocytes # (Auto) 0.94 K/mcL (0.10-0.90); Monocytes % (Auto) 11.2 % (1.0-12.0); Neutrophils % (Auto) 60.3 % (38.0-78.0); Platelet Count 310 K/mcL (140-440); RBC 3.16 M/mcL (3.59-5.38); Red Cell Distribution Width 14.1 % (11.5-14.5); WBC 8.4 K/mcL (4.5-11.0)
[2021-03-25 07:33] LABS: ALT/SGPT 18 U/L (<40); AST/SGOT 48 U/L (<32); Albumin 2.9 gm/dL (3.2-5.2); Alkaline Phosphatase 87 U/L (39-117); Bilirubin,Direct < 0.2 mg/dL (0-0.3); Bilirubin,Total 0.4 mg/dL (0.1-1.0); Blood Urea Nitrogen 13 mg/dL (8-23); Calcium 8.5 mg/dL (8.6-10.4); Carbon Dioxide 22 mmol/L (22-30); Chloride 99 mmol/L (96-108); Glomerular Filtration Rate 73; Glucose 104 mg/dL (70-105); Lactate Dehydrogenase 386 U/L (135-225); Phosphorous 1.9 mg/dL (2.5-4.5); Triglycerides 93 mg/dL (<150); Uric Acid 4.8 mg/dL (2.5-8.0)
[2021-03-25] MEDS: LEVOTHYROXINE 150 MCG TABLET PO SCH (08:00)
[2021-03-25] MEDS: DOCUSATE SODIUM 100 MG CAPSULE PO SCH ×5 (08:53→21:42)
[2021-03-25] MEDS: MULTIVIT,THER IRON,CA,FA & MIN 1 TABLET PO SCH ×2 (09:04→09:07)
[2021-03-25] MEDS: ESTRADIOL 1 MG TABLET PO SCH (09:04)
[2021-03-25] MEDS: MAGNESIUM OXIDE 400 MG TABLET PO SCH (09:04)
[2021-03-25] MEDS: OMEPRAZOLE 20 MG CAPSULE PO SCH (09:04)
[2021-03-25] MEDS: LORATADINE 10 MG TABLET PO SCH (09:04)
[2021-03-25] MEDS: VITAMIN D3 25 MCG TABLET PO SCH (09:04)
[2021-03-25] MEDS: HEPARIN 5,000 UNIT/ML VIAL SQ SCH ×2 (09:10→21:43)
--- NOTE | 2021-03-25 09:14 | Internal Med Progress Note ---
SUBJECTIVE Subjective Patient information: Note initiated : 03/25/21 at 9:10 am Service Date, if different from initiated Date: [] Patient: Leslie Joseph a 75 y/o F admitted on 03/24/21 for Weakness and dizzy after surgery. Chief Complaint: [] Interval history: Ms. Joseph is a 75 year old F who lives with her daughter in [place] and with a complex medical history including lumbar spinal stenosis chronic lower back pain, gout, hypertension, anxiety disorder, hypothyroidism who presents to the ER after recent hospitalization for left hip arthroplasty a week ago. Patient complains that ever since discharge she has been getting increasingly fatigued and weak unable to function along with progressive lower back pain, nausea. She has been taking her medications but has experienced associated loss of appetite, malaise along with associated lower extremity cramping. She presents to the ER for evaluation. Initial work-up was consistent with medical hyponatremia at 124 compared to recent level 135 on 03/13. Hospital service was consulted in light of above/symptomatic hyponatremia At the time of my evaluation patient is alert but anxious. She complains of lower back pain. She received a dose of morphine which has helped take the edge off pain. She denies bladder or bowel incontinence or unilateral leg weakness. She denies shooting pain, endorses to weakness fatigue but has been able to bear weight since surgery. She denies cough, fever, chest pain, recent sick contacts 03/25-patient clinically improved. Sodium up from 1 24-1 32. Improved cramps and fatigue and lethargic. Feeling a lot better. Will undergo physical therapy. Denies postoperative pain, chest pain, shortness of breath. No active concerns per staff. Low phosphorus start replacement. Constitutional Vitals: Vital Signs Temp Pulse Resp BP Pulse Ox 98.5 F 83 18 150/72 95 03/25/21 06:40 03/25/21 06:40 03/25/21 06:40 03/25/21 06:40 03/25/21 06:40 Period Temp Pulse Resp BP Sys/Brink Pulse Ox Last 24 Hr 96.9 F-99.1 F 75-100 16-20 123-164/48-101 92-100 Intake and Output 03/24/21 03/25/21 03/25/21 21:59 05:59 13:59 Intake Total 1400 200 Output Total 700 550 Balance 700 -350 Weight 117.118 kg alert oriented Nonlabored breathing No anxiety No lymphedema Intake & Output: Intake & Output 03/24/21 03/25/21 03/25/21 21:59 05:59 13:59 Intake Total 1400 200 Output Total 700 550 Balance 700 -350 Weight 117.118 kg Intake: IV 1000 Sodium Chloride 0.9% 1,000 ml @ 1000 50 mls/hr IV .Q20H [facility] Rx#: [id number] Oral 400 200 Output: Void Amount 700 550 Other: Meal Breakfast Percent of Meal Consumed 75% Feeding Ability Independent Nourishment/Supplement name . Urine Appearance Clear Clear Urine Color Straw Bright Yellow Urine Odor Normal Stool Size Small Stool Color Yellow Stool Consistency Soft # Voids 2 3 # Bowel Movements 1 OBJ DATA Labs CBC & Chem 7: 03/25/21 05:14 03/25/21 05:14 Labs: Abnormal Lab Results 03/25/21 03/25/21 03/24/21 05:14 05:14 23:50 WBC RBC 3.16 L Hgb 9.0 L Hct 28.0 L MPV Neut % (Auto) Lymph % (Auto) Lymph # (Auto) [place] # (Auto) 0.94 H Absolute Neutrophils Sodium 132 L 129 L Chloride Glucose Osmolality Calcium 8.5 L Phosphorus 1.9 L AST 48 H Lactate Dehydrogenase 386 H Albumin 2.9 L 03/24/21 03/24/21 03/24/21 19:48 13:13 09:29 WBC RBC Hgb Hct MPV Neut % (Auto) Lymph % (Auto) Lymph # (Auto) [place] # (Auto) Absolute Neutrophils Sodium 126 L 128 L Chloride Glucose Osmolality 273 L Calcium Phosphorus AST Lactate Dehydrogenase Albumin 03/24/21 03/24/21 05:26 05:25 WBC 13.0 H RBC Hgb 10.1 L Hct 31.7 L MPV 10.6 H Neut % (Auto) 80.9 H Lymph % (Auto) 9.3 L Lymph # (Auto) 1.21 L [place] # (Auto) 0.92 H Absolute Neutrophils 10.55 H Sodium 124 L Chloride 90 L Glucose 138 H Osmolality Calcium Phosphorus AST 52 H Lactate Dehydrogenase Albumin Meds: Medications Acetaminophen (Acetaminophen 325 Mg Tablet) 650 mg PO Q4-6HP PRN; Protocol PRN Reason: Per Pain Protocol/Fever > 101 Hydrocodone Bitart/Acetaminophen (Hydrocodone/Apap 10/325mg Tablet) 1 - 2 tab PO Q4HP PRN; Protocol PRN Reason: Per Pain Protocol Last Admin: 03/25/21 09:02 Dose: 1 tab Documented by: Alprazolam (Alprazolam 0.25 Mg Tablet) 0.25 mg PO DAILYP PRN PRN Reason: Anxiety Aspirin (Aspirin 325 Mg Enteric Coated Tablet) 325 mg PO HS [facility] Last Admin: 03/24/21 21:10 Dose: 325 mg Documented by: Bisacodyl (Bisacodyl 10 Mg Supp.Rect) 10 mg WI Q2-3DAYS PRN PRN Reason: Constipation Last Admin: 03/24/21 17:36 Dose: 10 mg Documented by: Colchicine (Colchicine 0.6 Mg Capsule) 0.6 mg PO DAILYP PRN PRN Reason: GOUT Docusate Sodium (Docusate Sodium 100 Mg Capsule) 100 mg PO BID [facility] Last Admin: 03/25/21 09:06 Dose: 100 mg Documented by: Docusate Sodium (Docusate Sodium 100 Mg Capsule) 100 mg PO BID [facility] Last Admin: 03/25/21 08:53 Dose: Not Given Documented by: Estradiol (Estradiol 1 Mg Tablet) 1 mg PO QAM [facility] Last Admin: 03/25/21 09:04 Dose: 1 mg Documented by: Heparin Sodium (Porcine) (Heparin 5,000 Unit/Ml Vial) 5,000 unit SQ Q12 [facility] Last Admin: 03/24/21 21:09 Dose: 5,000 unit Documented by: Potassium Chloride 40 meq/ (Dextrose) 520 mls @ 130 mls/hr IV UD PRN PRN Reason: K+ = or < 3.5 Acetaminophen (Ofirmev) 650 mg in 65 mls @ 130 mls/hr IV Q6HP PRN; Protocol PRN Reason: Per Pain Protocol/Fever > 101 Last Infusion: 03/24/21 10:51 Dose: Infused Documented by: Magnesium Sulfate (Magnesium Sulfate) 2 gm in 50 mls @ 50 mls/hr IV UD PRN PRN Reason: MG = or < 1.7 Sodium Chloride (Sodium Chloride 0.9%) 1,000 mls @ 50 mls/hr IV .Q20H [facility] Stop: 03/26/21 20:14 Last Admin: 03/25/21 06:25 Dose: 50 mls/hr Documented by: Ibuprofen (Ibuprofen 200 Mg Tablet) 200 mg PO Q4HP PRN PRN Reason: Pain Iron Carb/Multivit/[place]/Folic Acid (Multivit,Ther Iron,Ca,Fa & Min 1 Tablet) 1 tab PO DAILY [facility] Last Admin: 03/25/21 09:04 Dose: 1 tab Documented by: Iron Carb/Multivit/[place]/Folic Acid (Multivit,Ther Iron,Ca,Fa & Min 1 Tablet) 1 tab PO DAILY [facility] Last Admin: 03/25/21 09:07 Dose: Not Given Documented by: Levothyroxine Sodium (Levothyroxine 150 Mcg Tablet) [facility] Last Admin: 03/25/21 08:00 Dose: 150 mcg Documented by: Lidocaine (Lidocaine Patch) 1 patch TOPICAL DAILY@1000 BENY Loratadine (Loratadine 10 Mg Tablet) [facility] [place] Last Admin: 03/25/21 09:04 Dose: 10 mg Documented by: Losartan Potassium (Losartan 50 Mg Tablet) 100 mg [facility] Last Admin: 03/24/21 21:09 Dose: 100 mg Documented by: Magnesium Oxide (Magnesium Oxide 400 Mg Tablet) 400 mg PO DAILY [facility] Last Admin: 03/25/21 09:04 Dose: 400 mg Documented by: Melatonin (Melatonin 3 Mg Tablet) 3 mg PO HSP PRN PRN Reason: Insomnia Methocarbamol (Methocarbamol 500 Mg Tablet) 500 mg PO QHS [facility] Last Admin: 03/24/21 21:10 Dose: 500 mg Documented by: Montelukast Sodium (Montelukast 10 Mg Tablet) 10 mg PO QHS [facility] Last Admin: 03/24/21 21:09 Dose: 10 mg Documented by: Morphine Sulfate (Morphine 2 Mg/Ml Vial) 2 mg IV Q2HP PRN; Protocol PRN Reason: Per Pain Protocol Last Admin: 03/24/21 23:31 Dose: 2 mg Documented by: Omeprazole (Omeprazole 20 Mg Capsule) [facility] [place] Last Admin: 03/25/21 09:04 Dose: 20 mg Documented by: Ondansetron HCl (Ondansetron 4 Mg Odt Tablet) 4 mg SL Q4-6HP PRN; Protocol PRN Reason: Nausea And Vomiting Last Admin: 03/24/21 22:05 Dose: 4 mg Documented by: Ondansetron HCl (Ondansetron 4 Mg/2 Ml Vial) 4 mg IV Q4-6HP PRN; Protocol PRN Reason: Nausea And Vomiting Potassium 99 Mg (Tablet) 1 dose PO QAM [facility] Polyethylene Glycol (Polyethylene Glycol 3350 17 Gm Packet) 17 gm PO DAILYP PRN PRN Reason: Constipation Potassium Chloride (Potassium Chloride 10 Meq Tablet) 10 meq PO DAILYP PRN PRN Reason: hypokalemia Senna/Docusate Sodium (Sennosides/Docusate Sodium 1 Tab Tablet) 1 tab PO HS [facility] Last Admin: 03/24/21 21:09 Dose: 1 tab Documented by: Simvastatin (Simvastatin 20 Mg Tablet) 20 mg PO HS [facility] Last Admin: 03/24/21 21:10 Dose: 20 mg Documented by: Sodium Chloride (0.9 % Sodium Chloride 10 Ml Syringe) 10 ml IV Q8 [facility] Last Admin: 03/25/21 06:25 Dose: Not Given Documented by: Torsemide (Torsemide 10 Mg Tablet) 10 mg PO DAILYP PRN PRN Reason: Edema Vitamin D (Vitamin D3 1,000 Unit Tablet) 1,000 unit PO DAILY [facility] Last Admin: 03/25/21 09:04 Dose: 1,000 unit Documented by: A/P Narrative A/P Narrative: * Symptomatic hypovolemic hyponatremia, urine osmolarity suggestive against SIADH. Continue gentle salt replacement. Sodium rise at goal. * Recent left total hip arthroplasty-continue physical therapies * Lumbar spinal stenosis/lower back pain doing well on home dose opioids/lidocaine patch/physical therapy * Hyperlipemia continue statin * Morbid obesity frequent turning/repositioning/decubitus care and maintain fall risk. Directed therapies including dietary interventions * GERD continue PPI * Hypertension stable on home dose losartan * Hypothyroidism continue thyroxine * History of gout currently stable * Prophylaxis Heparin Plan * Telemetry monitoring * Pre-existing medical condition management home medication * PT OT/directed therapies/nutrition support * Discharge planning likely SNF Time Spent With Patient Time: Total time spent is greater than 50% in coordination of care (as documented) at patient's floor/unit and/or counseling patient: QUALITY VTE Deep Vein Thrombosis/Pulmonary Embolism Present on Admission: No
[2021-03-25] MEDS: LIDOCAINE PATCH TOPICAL SCH (09:26)
[2021-03-25] MEDS ORDERED: NEUTRA PHOS 1 PACKET PO PRN (11:06)
--- NOTE | 2021-03-25 16:48 | EKG ---
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
[2021-03-25] MEDS: IBUPROFEN 200 MG TABLET PO PRN (17:07)
[2021-03-25] MEDS: morphine 2 MG/ML VIAL IV PRN (19:37)
[2021-03-25] MEDS: ASPIRIN 325 MG ENTERIC COATED TABLET PO SCH (21:43)
[2021-03-25] MEDS: METHOCARBAMOL 500 MG TABLET PO SCH (21:43)
[2021-03-25] MEDS: MONTELUKAST 10 MG TABLET PO SCH (21:43)
[2021-03-25] MEDS: SIMVASTATIN 20 MG TABLET PO SCH (21:43)
[2021-03-25] MEDS: LOSARTAN 50 MG TABLET PO SCH (21:43)
[2021-03-25] MEDS: SENNOSIDES/DOCUSATE SODIUM 1 TAB TABLET PO SCH (21:44)
[2021-03-26] MEDS: 0.9 % SODIUM CHLORIDE 1,000 ML IV SCH (02:35)
[2021-03-26] MEDS: IBUPROFEN 200 MG TABLET PO PRN ×4 (02:41→23:20)
[2021-03-26] MEDS: HYDROcodone/APAP 10/325MG TABLET PO PRN ×5 (03:34→21:09)
[2021-03-26] MEDS: 0.9 % SODIUM CHLORIDE 10 ML SYRINGE IV SCH ×3 (04:59→21:10)
[2021-03-26 07:29] LABS: ALT/SGPT 19 U/L (<40); AST/SGOT 44 U/L (<32); Albumin 3.1 gm/dL (3.2-5.2); Albumin/Globulin Ratio 1.1 (1.0-2.3); Alkaline Phosphatase 94 U/L (39-117); Bilirubin,Direct < 0.2 mg/dL (0-0.3); Bilirubin,Total 0.3 mg/dL (0.1-1.0); Blood Urea Nitrogen 9 mg/dL (8-23); Calcium 8.4 mg/dL (8.6-10.4); Carbon Dioxide 24 mmol/L (22-30); Chloride 103 mmol/L (96-108); Globulin 2.8 gm/dL (2.2-3.7); Glomerular Filtration Rate 63; Glucose 100 mg/dL (70-105); Lactate Dehydrogenase 391 U/L (135-225); Phosphorous 2.4 mg/dL (2.5-4.5); Triglycerides 108 mg/dL (<150); Uric Acid 4.9 mg/dL (2.5-8.0)
[2021-03-26 08:05] LABS: Basophils # (Auto) 0.06 K/mcL (0.00-0.30); Basophils % (Auto) 0.8 % (0.0-2.0); Eosinophils # (Auto) 0.46 K/mcL (0.00-0.70); Eosinophils % (Auto) 5.8 % (0.0-7.0); Hematocrit 30.2 % (34.1-44.9); Hemoglobin 9.2 g/dL (11.2-15.7); Lymphocytes # (Auto) 1.77 K/mcL (1.50-4.80); Lymphocytes % (Auto) 22.2 % (15.5-49.0); Mean Cell Volume 91.8 fL (80.0-100.0); Mean Corpuscular HGB Conc 30.5 g/dL (31.0-36.0); Mean Platelet Volume 10.7 fL (7.4-10.4); Neutrophils % (Auto) 61.2 % (38.0-78.0); Platelet Count 355 K/mcL (140-440); RBC 3.29 M/mcL (3.59-5.38); Red Cell Distribution Width 14.5 % (11.5-14.5)
[2021-03-26] MEDS: MULTIVIT,THER IRON,CA,FA & MIN 1 TABLET PO SCH ×2 (08:18→08:20)
[2021-03-26] MEDS: LORATADINE 10 MG TABLET PO SCH (08:18)
[2021-03-26] MEDS: OMEPRAZOLE 20 MG CAPSULE PO SCH (08:18)
[2021-03-26] MEDS: MAGNESIUM OXIDE 400 MG TABLET PO SCH (08:18)
[2021-03-26] MEDS: LEVOTHYROXINE 150 MCG TABLET PO SCH (08:18)
[2021-03-26] MEDS: HEPARIN 5,000 UNIT/ML VIAL SQ SCH ×2 (08:18→21:09)
[2021-03-26] MEDS: ALPRAZolam 0.25 MG TABLET PO PRN (08:18)
[2021-03-26] MEDS: DOCUSATE SODIUM 100 MG CAPSULE PO SCH ×4 (08:19→21:10)
[2021-03-26] MEDS: VITAMIN D3 25 MCG TABLET PO SCH (08:19)
[2021-03-26] MEDS: ESTRADIOL 1 MG TABLET PO SCH (08:19)
[2021-03-26] MEDS ORDERED: NEUTRA PHOS 1 PACKET PO PRN ×2 (08:52→11:02)
[2021-03-26] MEDS: LIDOCAINE PATCH TOPICAL SCH (09:58)
--- NOTE | 2021-03-26 11:02 | Internal Med Progress Note ---
SUBJECTIVE Subjective Patient information: Note initiated : 03/26/21 at 10:58 am Service Date, if different from initiated Date: [] Patient: Leslie Joseph a 75 y/o F admitted on 03/24/21 for Weakness and dizzy after surgery. Chief Complaint: [] Interval history: Ms. Joseph is a 75 year old F who lives with her daughter in [place] and with a complex medical history including lumbar spinal stenosis chronic lower back pain, gout, hypertension, anxiety disorder, hypothyroidism who presents to the ER after recent hospitalization for left hip arthroplasty a week ago. Patient complains that ever since discharge she has been getting increasingly fatigued and weak unable to function along with progressive lower back pain, nausea. She has been taking her medications but has experienced associated loss of appetite, malaise along with associated lower extremity cramping. She presents to the ER for evaluation. Initial work-up was consistent with medical hyponatremia at 124 compared to recent level 135 on 03/13. Hospital service was consulted in light of above/symptomatic hyponatremia At the time of my evaluation patient is alert but anxious. She complains of lower back pain. She received a dose of morphine which has helped take the edge off pain. She denies bladder or bowel incontinence or unilateral leg weakness. She denies shooting pain, endorses to weakness fatigue but has been able to bear weight since surgery. She denies cough, fever, chest pain, recent sick contacts 03/25-patient clinically improved. Sodium up from 1 24-1 32. Improved cramps and fatigue and lethargic. Feeling a lot better. Will undergo physical therapy. Denies postoperative pain, chest pain, shortness of breath. No active concerns per staff. Low phosphorus start replacement. 03/26-patient doing well. Complains of improved back pain and able to ambulate/tolerate diet/feels a lot better. Sodium up to 136, phosphorus 2.4 on replacement, no overnight events or concerns per nursing staff. Stable labs and hemodynamics. Ongoing physical therapy. Case management coordinate possible discharge in 24 hours. Constitutional Vitals: Vital Signs Temp Pulse Resp BP Pulse Ox 97.9 F 82 15 125/55 97 03/26/21 07:02 03/26/21 07:02 03/26/21 07:02 03/26/21 07:02 03/26/21 07:02 Period Temp Pulse Resp BP Sys/Brink Pulse Ox Last 24 Hr 97.3 F-98.7 F 69-90 15-18 117-162/55-87 95-99 Intake and Output 03/25/21 03/26/21 03/26/21 21:59 05:59 13:59 Intake Total 1350 Output Total 0 Balance 0 1350 Weight 115.666 kg alert oriented Nonlabored breathing No anxiety Morbidly obese No lymphedema Intake & Output: Intake & Output 03/25/21 03/26/21 03/26/21 21:59 05:59 13:59 Intake Total 1350 Output Total 0 Balance 0 1350 Weight 115.666 kg Intake: IV 1000 Sodium Chloride 0.9% 1,000 ml @ 1000 50 mls/hr IV .Q20H [facility] Rx#: [id number] Oral 350 Output: Void Amount 0 Other: Urine Appearance Clear Urine Color Bright Yellow Urine Odor Normal # Voids 3 1 1 OBJ DATA Labs CBC & Chem 7: 03/26/21 05:23 03/26/21 05:23 Labs: Abnormal Lab Results 03/26/21 03/26/21 03/25/21 05:23 05:23 05:14 WBC RBC 3.29 L Hgb 9.2 L Hct 30.2 L MCHC 30.5 L MPV 10.7 H Neut % (Auto) Lymph % (Auto) Lymph # (Auto) [place] # (Auto) Absolute Neutrophils Sodium 132 L Chloride Glucose Osmolality Calcium 8.4 L 8.5 L Phosphorus 2.4 L 1.9 L AST 44 H 48 H Lactate Dehydrogenase 391 H 386 H Albumin 3.1 L 2.9 L 03/25/21 03/24/21 03/24/21 05:14 23:50 19:48 WBC RBC 3.16 L Hgb 9.0 L Hct 28.0 L MCHC MPV Neut % (Auto) Lymph % (Auto) Lymph # (Auto) [place] # (Auto) 0.94 H Absolute Neutrophils Sodium 129 L 126 L Chloride Glucose Osmolality Calcium Phosphorus AST Lactate Dehydrogenase Albumin 03/24/21 03/24/21 03/24/21 13:13 09:29 05:26 WBC 13.0 H RBC Hgb 10.1 L Hct 31.7 L MCHC MPV 10.6 H Neut % (Auto) 80.9 H Lymph % (Auto) 9.3 L Lymph # (Auto) 1.21 L [place] # (Auto) 0.92 H Absolute Neutrophils 10.55 H Sodium 128 L Chloride Glucose Osmolality 273 L Calcium Phosphorus AST Lactate Dehydrogenase Albumin 03/24/21 05:25 WBC RBC Hgb Hct MCHC MPV Neut % (Auto) Lymph % (Auto) Lymph # (Auto) [place] # (Auto) Absolute Neutrophils Sodium 124 L Chloride 90 L Glucose 138 H Osmolality Calcium Phosphorus AST 52 H Lactate Dehydrogenase Albumin Meds: Medications Acetaminophen (Acetaminophen 325 Mg Tablet) 650 mg PO Q4-6HP PRN; Protocol PRN Reason: Per Pain Protocol/Fever > 101 Hydrocodone Bitart/Acetaminophen (Hydrocodone/Apap 10/325mg Tablet) 1 - 2 tab PO Q4HP PRN; Protocol PRN Reason: Per Pain Protocol Last Admin: 03/26/21 07:39 Dose: 2 tab Documented by: Alprazolam (Alprazolam 0.25 Mg Tablet) 0.25 mg PO DAILYP PRN PRN Reason: Anxiety Last Admin: 03/26/21 08:18 Dose: 0.25 mg Documented by: Aspirin (Aspirin 325 Mg Enteric Coated Tablet) 325 mg PO HS [facility] Last Admin: 03/25/21 21:43 Dose: 325 mg Documented by: Bisacodyl (Bisacodyl 10 Mg Supp.Rect) 10 mg SC Q2-3DAYS PRN PRN Reason: Constipation Last Admin: 03/24/21 17:36 Dose: 10 mg Documented by: Colchicine (Colchicine 0.6 Mg Capsule) 0.6 mg PO DAILYP PRN PRN Reason: GOUT Docusate Sodium (Docusate Sodium 100 Mg Capsule) 100 mg PO BID [facility] Last Admin: 03/26/21 08:19 Dose: 100 mg Documented by: Docusate Sodium (Docusate Sodium 100 Mg Capsule) 100 mg PO BID [facility] Last Admin: 03/26/21 08:19 Dose: Not Given Documented by: Estradiol (Estradiol 1 Mg Tablet) 1 mg PO QAM [facility] Last Admin: 03/26/21 08:19 Dose: 1 mg Documented by: Heparin Sodium (Porcine) (Heparin 5,000 Unit/Ml Vial) 5,000 unit SQ Q12 [facility] Last Admin: 03/26/21 08:18 Dose: 5,000 unit Documented by: Potassium Chloride 40 meq/ (Dextrose) 520 mls @ 130 mls/hr IV UD PRN PRN Reason: K+ = or < 3.5 Acetaminophen (Ofirmev) 650 mg in 65 mls @ 130 mls/hr IV Q6HP PRN; Protocol PRN Reason: Per Pain Protocol/Fever > 101 Last Infusion: 03/24/21 10:51 Dose: Infused Documented by: Magnesium Sulfate (Magnesium Sulfate) 2 gm in 50 mls @ 50 mls/hr IV UD PRN PRN Reason: MG = or < 1.7 Sodium Chloride (Sodium Chloride 0.9%) 1,000 mls @ 50 mls/hr IV .Q20H [facility] Stop: 03/26/21 20:14 Last Admin: 03/26/21 02:35 Dose: 50 mls/hr Documented by: Ibuprofen (Ibuprofen 200 Mg Tablet) 200 mg PO Q4HP PRN PRN Reason: Pain Last Admin: 03/26/21 08:25 Dose: 200 mg Documented by: Iron Carb/Multivit/[place]/Folic Acid (Multivit,Ther Iron,Ca,Fa & Min 1 Tablet) 1 tab PO DAILY [facility] Last Admin: 03/26/21 08:18 Dose: 1 tab Documented by: Iron Carb/Multivit/[place]/Folic Acid (Multivit,Ther Iron,Ca,Fa & Min 1 Tablet) 1 tab PO DAILY [facility] Last Admin: 03/26/21 08:20 Dose: Not Given Documented by: Levothyroxine Sodium (Levothyroxine 150 Mcg Tablet) 150 mcg PO QAMAC [facility] Last Admin: 03/26/21 08:18 Dose: 150 mcg Documented by: Lidocaine (Lidocaine Patch) 1 patch TOPICAL DAILY@1000 [facility] Last Admin: 03/26/21 09:58 Dose: 1 patch Documented by: Loratadine (Loratadine 10 Mg Tablet) 10 mg PO QAM [facility] Last Admin: 03/26/21 08:18 Dose: 10 mg Documented by: Losartan Potassium (Losartan 50 Mg Tablet) 100 mg PO HS [facility] Last Admin: 03/25/21 21:43 Dose: 100 mg Documented by: Magnesium Oxide (Magnesium Oxide 400 Mg Tablet) 400 mg PO DAILY [facility] Last Admin: 03/26/21 08:18 Dose: 400 mg Documented by: Melatonin (Melatonin 3 Mg Tablet) 3 mg PO HSP PRN PRN Reason: Insomnia Methocarbamol (Methocarbamol 500 Mg Tablet) 500 mg PO QHS [facility] Last Admin: 03/25/21 21:43 Dose: 500 mg Documented by: Montelukast Sodium (Montelukast 10 Mg Tablet) 10 mg PO QHS [facility] Last Admin: 03/25/21 21:43 Dose: 10 mg Documented by: Morphine Sulfate (Morphine 2 Mg/Ml Vial) 2 mg IV Q2HP PRN; Protocol PRN Reason: Per Pain Protocol Last Admin: 03/25/21 19:37 Dose: 2 mg Documented by: Omeprazole (Omeprazole 20 Mg Capsule) 20 mg PO [facility] Last Admin: 03/26/21 08:18 Dose: 20 mg Documented by: Ondansetron HCl (Ondansetron 4 Mg Odt Tablet) 4 mg SL Q4-6HP PRN; Protocol PRN Reason: Nausea And Vomiting Last Admin: 03/24/21 22:05 Dose: 4 mg Documented by: Ondansetron HCl (Ondansetron 4 Mg/2 Ml Vial) 4 mg IV Q4-6HP PRN; Protocol PRN Reason: Nausea And Vomiting Potassium 99 Mg (Tablet) 1 dose PO [facility] Last Admin: 03/26/21 08:20 Dose: Not Given Documented by: Polyethylene Glycol (Polyethylene Glycol 3350 17 Gm Packet) 17 gm PO DAILYP PRN PRN Reason: Constipation Potassium Chloride (Potassium Chloride 10 Meq Tablet) 10 meq PO DAILYP PRN PRN Reason: hypokalemia Potassium/Phosphorus/Sodium (Neutra Phos 1 Packet) 2 packet PO DAILY PRN PRN Reason: For phosphorus less than 2.5 Last Admin: 03/26/21 09:59 Dose: 2 packet Documented by: Senna/Docusate Sodium (Sennosides/Docusate Sodium 1 Tab Tablet) 1 tab PO [facility] Last Admin: 03/25/21 21:44 Dose: Not Given Documented by: Simvastatin (Simvastatin 20 Mg Tablet) 20 mg PO [facility] Last Admin: 03/25/21 21:43 Dose: 20 mg Documented by: Sodium Chloride (0.9 % Sodium Chloride 10 Ml Syringe) 10 ml IV Q8 [facility] Last Admin: 03/26/21 04:59 Dose: Not Given Documented by: Torsemide (Torsemide 10 Mg Tablet) 10 mg PO DAILYP PRN PRN Reason: Edema Vitamin D (Vitamin D3 1,000 Unit Tablet) 1,000 unit PO DAILY [facility] Last Admin: 03/26/21 08:19 Dose: 1,000 unit Documented by: A/P Narrative A/P Narrative: * Symptomatic hypovolemic hyponatremia, urine osmolarity suggestive against SIADH. Clinically improved now at 136 with crystalloids * Recent left total hip arthroplasty-ongoing physical therapies, case management coordinate discharge planning * Low phosphorus start replacement * Lumbar spinal stenosis/lower back pain doing well on home dose opioids/Robaxin/NSAID/lidocaine patch/physical therapy * Hyperlipemia continue statin * Morbid obesity frequent turning/repositioning/decubitus care and maintain fall risk. Directed therapies including dietary interventions * GERD continue PPI * Hypertension stable on home dose losartan * Hypothyroidism continue thyroxine * History of gout currently stable * Prophylaxis Heparin Plan * Pre-existing medical condition management home medication * PT OT/directed therapies/nutrition support * Dischargedhome on lidocaine patch/tramadol/oral narcotic/Robaxin/NSAID * Discharge planning per case management Time Spent With Patient Time: Total time spent is greater than 50% in coordination of care (as documented) at patient's floor/unit and/or counseling patient: QUALITY VTE Deep Vein Thrombosis/Pulmonary Embolism Present on Admission: No
[2021-03-26] MEDS: METHOCARBAMOL 500 MG TABLET PO PRN ×2 (11:44→18:50)
[2021-03-26] MEDS: SIMVASTATIN 20 MG TABLET PO SCH (21:10)
[2021-03-26] MEDS: MONTELUKAST 10 MG TABLET PO SCH (21:10)
[2021-03-26] MEDS: SENNOSIDES/DOCUSATE SODIUM 1 TAB TABLET PO SCH (21:10)
[2021-03-26] MEDS: LOSARTAN 50 MG TABLET PO SCH (21:10)
[2021-03-26] MEDS: ASPIRIN 325 MG ENTERIC COATED TABLET PO SCH (21:10)
[2021-03-27] MEDS: HYDROcodone/APAP 10/325MG TABLET PO PRN ×3 (03:04→14:16)
[2021-03-27] MEDS: METHOCARBAMOL 500 MG TABLET PO PRN (03:04)
[2021-03-27] MEDS: 0.9 % SODIUM CHLORIDE 10 ML SYRINGE IV SCH ×2 (04:25→15:17)
[2021-03-27] MEDS: LEVOTHYROXINE 150 MCG TABLET PO SCH (07:19)
[2021-03-27 07:42] LABS: Basophils # (Auto) 0.07 K/mcL (0.00-0.30); Basophils % (Auto) 0.8 % (0.0-2.0); Eosinophils # (Auto) 0.63 K/mcL (0.00-0.70); Eosinophils % (Auto) 7.2 % (0.0-7.0); Hematocrit 30.3 % (34.1-44.9); Hemoglobin 9.7 g/dL (11.2-15.7); Lymphocytes # (Auto) 2.34 K/mcL (1.50-4.80); Lymphocytes % (Auto) 26.8 % (15.5-49.0); Mean Cell Volume 89.9 fL (80.0-100.0); Mean Platelet Volume 10.1 fL (7.4-10.4); Monocytes # (Auto) 0.76 K/mcL (0.10-0.90); Monocytes % (Auto) 8.7 % (1.0-12.0); Neutrophils % (Auto) 56.5 % (38.0-78.0); Platelet Count 386 K/mcL (140-440); RBC 3.37 M/mcL (3.59-5.38); Red Cell Distribution Width 14.8 % (11.5-14.5); WBC 8.7 K/mcL (4.5-11.0)
[2021-03-27 08:25] LABS: ALT/SGPT 21 U/L (<40); AST/SGOT 39 U/L (<32); Albumin 3.4 gm/dL (3.2-5.2); Albumin/Globulin Ratio 1.2 (1.0-2.3); Alkaline Phosphatase 99 U/L (39-117); Bilirubin,Direct < 0.2 mg/dL (0-0.3); Bilirubin,Total 0.3 mg/dL (0.1-1.0); Blood Urea Nitrogen 7 mg/dL (8-23); Calcium 8.4 mg/dL (8.6-10.4); Carbon Dioxide 25 mmol/L (22-30); Chloride 101 mmol/L (96-108); Globulin 2.8 gm/dL (2.2-3.7); Glomerular Filtration Rate 63; Glucose 104 mg/dL (70-105); Lactate Dehydrogenase 354 U/L (135-225); Phosphorous 2.7 mg/dL (2.5-4.5); Triglycerides 120 mg/dL (<150); Uric Acid 5.2 mg/dL (2.5-8.0)
[2021-03-27] MEDS: LIDOCAINE PATCH TOPICAL SCH (09:51)
[2021-03-27] MEDS: ALPRAZolam 0.25 MG TABLET PO PRN (09:51)
[2021-03-27] MEDS: MULTIVIT,THER IRON,CA,FA & MIN 1 TABLET PO SCH (09:52)
[2021-03-27] MEDS: IBUPROFEN 200 MG TABLET PO PRN (09:53)
[2021-03-27] MEDS: LORATADINE 10 MG TABLET PO SCH (09:53)
[2021-03-27] MEDS: MAGNESIUM OXIDE 400 MG TABLET PO SCH (09:53)
[2021-03-27] MEDS: DOCUSATE SODIUM 100 MG CAPSULE PO SCH (09:53)
[2021-03-27] MEDS: VITAMIN D3 25 MCG TABLET PO SCH (09:53)
[2021-03-27] MEDS: ESTRADIOL 1 MG TABLET PO SCH (09:53)
[2021-03-27] MEDS: OMEPRAZOLE 20 MG CAPSULE PO SCH (09:54)
[2021-03-27] MEDS: HEPARIN 5,000 UNIT/ML VIAL SQ SCH (09:54)
--- NOTE | 2021-03-27 10:44 | Discharge Summary ---
Discharge Provider Provider Patient information: Note initiated : 03/27/21 at 10:36 am Service Date, if different from initiated Date: [] Patient: Leslie Joseph 75 y/o F admitted on 03/24/21 for Weakness and dizzy after surgery. Chief Complaint: [] Date of admission: 03/24/21 09:40 Discharge date: 03/27/21 Primary care physician: Tiffanie Ortiz Consults: 03/24/21 Consult to Physician [CONS] Stat Comment: Consulting Provider: Hudson Sumner Reason For Exam: Physician to Consult Discharge Meds Discharge Medications Home Medications alprazolam 0.25 mg tablet 0.25 mg PO DAILYP PRN 07/03/18 [History Confirmed 03/24/21 Last Taken 03/20/21 07:30] aspirin 325 mg tablet 325 mg PO HS 07/03/18 [History Confirmed 03/24/21 Last Taken 03/13/21] colchicine 0.6 mg capsule 0.6 mg PO DAILYP PRN 07/03/18 [History Confirmed 03/24/21 Last Taken Unknown] losartan 100 mg tablet 100 mg PO HS 07/03/18 [History Confirmed 03/24/21 Last Taken 03/23/21] simvastatin 20 mg tablet 20 mg PO HS 07/03/18 [History Confirmed 03/24/21 Last Taken 03/23/21] acetaminophen 500 mg tablet 500 - 1,000 mg PO BIDP PRN 09/16/18 [History Confirmed 03/24/21 Last Taken 03/20/21 07:30] estradiol 1 mg tablet 1 mg PO QAM 09/16/18 [History Confirmed 03/24/21 Last Taken 03/23/21] multivitamin-iron 9 mg-folic acid 400 mcg-calcium and minerals tablet 1 tab PO DAILY 09/16/18 [History Confirmed 03/24/21 Last Taken 03/23/21] ibuprofen 200 mg capsule 200 mg PO Q4HP PRN cap 11/16/20 [History Confirmed 03/24/21 Last Taken 03/13/21] loratadine 10 mg tablet (Claritin) 10 mg PO QAM 11/16/20 [History Confirmed 03/24/21 Last Taken 03/23/21] montelukast 10 mg tablet 10 mg PO QHS 11/16/20 [History Confirmed 03/24/21 Last Taken 03/23/21] potassium chloride 10 mEq capsule,extended release 10 meq PO DAILYP PRN 11/16/20 [History Confirmed 03/24/21 Last Taken 03/18/21] torsemide 20 mg tablet 10 mg PO DAILYP PRN tab 11/16/20 [History Confirmed 03/24/21 Last Taken 03/18/21] cholecalciferol (vitamin D3) 25 mcg (1,000 unit) capsule (Vitamin D3) 25 mcg PO QAM 03/13/21 [History Confirmed 03/24/21 Last Taken 03/23/21] levothyroxine 150 mcg tablet 150 mcg PO QAMAC 03/13/21 [History Confirmed 03/24/21 Last Taken 03/23/21] magnesium 250 mg tablet 500 mg PO QAM 03/13/21 [History Confirmed 03/24/21 Last Taken 03/23/21] methocarbamol 500 mg tablet 500 mg PO QHS 03/13/21 [History Confirmed 03/24/21 Last Taken 03/23/21] omeprazole 20 mg capsule,delayed release 20 mg PO QAM 03/13/21 [History Confirmed 03/24/21 Last Taken 03/23/21] potassium 99 mg tablet 99 mg PO QAM 03/13/21 [History Confirmed 03/24/21 Last Taken 03/23/21] aspirin 81 mg tablet,delayed release (Ecotrin Low Strength) 81 mg PO BID #60 tab 03/20/21 [Rx Confirmed 03/24/21 Last Taken 03/23/21] docusate sodium 100 mg capsule 100 mg PO BID #60 cap 03/20/21 [Rx Confirmed 03/24/21 Last Taken 03/23/21] hydrocodone 10 mg-acetaminophen 325 mg tablet 1 - 2 tab PO Q4HP PRN #75 tab 03/20/21 [Rx Confirmed 03/24/21 Last Taken 03/23/21] ondansetron HCl 4 mg tablet (Zofran) 4 mg PO Q6H PRN #25 tab 03/21/21 [Rx Confirmed 03/24/21 Last Taken 03/22/21] hydrocodone 10 mg-acetaminophen 325 mg tablet 1 - 2 tab PO Q4HP PRN #20 tab 03/27/21 [Rx Last Taken Unknown] lidocaine 5 % topical patch 1 patch TOPICAL DAILY@1000 #15 ea 03/27/21 [Rx Last Taken Unknown] methocarbamol 500 mg tablet 500 mg PO Q6HP PRN #30 tab 03/27/21 [Rx Last Taken Unknown] sennosides 8.6 mg-docusate sodium 50 mg tablet (Senna Plus) 1 tab PO HS #30 tab 03/27/21 [Rx Last Taken Unknown] COURSE Hospital Course Hospital course: Discharge diagnosis * Symptomatic hypovolemic hyponatremia, urine osmolarity suggestive against SIADH. Clinically improved with crystalloids . From 1 24- 136 with cryst alloids * Recent left total hip arthroplasty-ongoing physical therapies, discharging home with home health * Low phosphorus improved from 1.9-2.7 with replacement * Lumbar spinal stenosis/lower back pain doing well on home dose opioids/Robaxin/NSAID/lidocaine patch/BD. Recommend outpatient follow-up with PCP/IPC * Hyperlipemia continue statin * Morbid obesity, recommend behavioral and lifestyle/dietary modification/ * GERD continue PPI * Hypertension stable on home dose losartan * Hypothyroidism continue thyroxine * History of gout currently stable Brief hospital course Ms. Joseph is a 75 year old F who lives with her daughter in [place] and with a complex medical history including lumbar spinal stenosis chronic lower back pain, gout, hypertension, anxiety disorder, hypothyroidism who presents to the ER after recent hospitalization for left hip arthroplasty a week ago. Patient complains that ever since discharge she has been getting increasingly fatigued and weak unable to function along with progressive lower back pain, nausea. She has been taking her medications but has experienced associated loss of appetite, malaise along with associated lower extremity cramping. She presents to the ER for evaluation. Initial work-up was consistent with medical hyponatremia at 124 compared to recent level 135 on 03/13. Hospital service was consulted in light of above/symptomatic hyponatremia At the time of my evaluation patient is alert but anxious. She complains of lower back pain. She received a dose of morphine which has helped take the edge off pain. She denies bladder or bowel incontinence or unilateral leg weakness. She denies shooting pain, endorses to weakness fatigue but has been able to bear weight since surgery. She denies cough, fever, chest pain, recent sick contacts 03/25-patient clinically improved. Sodium up from 1 24-1 32. Improved cramps and fatigue and lethargic. Feeling a lot better. Will undergo physical t herapy. Denies postoperative pain, chest pain, shortness of breath. No active concerns per staff. Low phosphorus start replacement. 03/26-patient doing well. Complains of improved back pain and able to ambulate/tolerate diet/feels a lot better. Sodium up to 136, phosphorus 2.4 on replacement, no overnight events or concerns per nursing staff. Stable labs and hemodynamics. Ongoing physical therapy. Case management coordinate possible discharge in 24 hours. 03/27 patient doing well. No overnight events. No concerns per staff. Ongoing physical therapy. Back pain improved on Robaxin/hydrocodone/lidocaine patch. Recommend outpatient follow-up with interventional pain clinic for lumbar spinal stenosis pain management/PCP follow-up and referral to spine surgery. Continue home health physical therapy Discharge diagnosis: Hyponatremia Time Spent with Patient Time attestation: Total time spent providing and/or coordinating discharge services: EXAM Constitutional Vitals: Temp Pulse Resp BP Pulse Ox 97.6 F 77 16 152/57 100 03/27/21 07:20 03/27/21 07:20 03/27/21 07:20 03/27/21 07:20 03/27/21 07:20 Discharge Data Data Completed and Pending Labs on day of discharge: Labs from last 24 hours 03/27/21 03/27/21 06:00 06:00 WBC 8.7 RBC 3.37 L Hgb 9.7 L Hct 30.3 L MCV 89.9 MCH 28.8 MCHC 32.0 RDW 14.8 H Plt Count 386 MPV 10.1 Neut % (Auto) 56.5 Lymph % (Auto) 26.8 [place] % (Auto) 8.7 Eos % (Auto) 7.2 H Baso % (Auto) 0.8 Lymph # (Auto) 2.34 [place] # (Auto) 0.76 Eos # (Auto) 0.63 Baso # (Auto) 0.07 Absolute Neutrophils 4.93 Sodium 136 Potassium 4.7 Chloride 101 Carbon Dioxide 25 Anion Gap 10.0 BUN 7 L Creatinine 0.9 GFR Calculation 63 Glucose 104 Uric Acid 5.2 Calcium 8.4 L Phosphorus 2.7 Magnesium 2.0 Total Bilirubin 0.3 Direct Bilirubin < 0.2 GGT 32 AST 39 H ALT 21 Alkaline Phosphatase 99 Lactate Dehydrogenase 354 H Total Protein 6.2 Albumin 3.4 Globulin 2.8 Albumin/Globulin Ratio 1.2 Triglycerides 120 Discharge Plan Patient/Caregiver Discharge Instructions Activity: increase activity as tolerated Diet: Regular Diet Instructions: Hydrocodone/Acetaminophen (By mouth), Methocarbamol (By mouth), Lidocaine (On the skin), Hyponatremia (DC) Activity Restrictions/Additional Instructions: Resume home diet as tolerated. Take all meals up in chair, sitting at 90 degrees, to prevent aspiration. Increase activity as tolerated. You will have [facility] for Physical Therapy, Occupational Therapy, and nursing. Hospitalist recommends follow-up with IPC/spinal surgery for evaluation lucas gement of spinal stenosis. To be arranged by PCP. Take all medication as directed. Your prescriptions are with your discharge paperwork. Pain medication can cause constipation; take an over the counter stool softener and/or laxative while on pain medication. Take your prescription, insurance cards, and photo ID to potato picker your medication. If you have any questions or concerns about your surgery from 03/21, call your orthopedic surgeon before going to the emergency room. [facility] has an on- call physician 24 hours per day/7 days per week and can be reached at [phone]. Call for fevers above 100.5 or pain not controlled by medication. This discharge packet is provided to you to help keep you informed about your care. We want to ensure you get everything you need when you go home. You will also be receiving a call from us in a few days to follow up with you and see how you are doing since your discharge. This gives us a chance to listen to any concerns you maybe experiencing since you were discharged or any additional needs you may have, as well as providing us feedback on your care experience. We strive to always provide excellent care and thank you for your feedback and for choosing [facility]. Prescriptions: New sennosides-docusate sodium [Senna Plus] 8.6-50 mg Tablet 1 tab PO HS Qty: 30 0RF lidocaine 5 % Adhesive Patch,Medicated 1 patch topical DAILY@1000 Qty: 15 0RF methocarbamol 500 mg Tablet 500 mg PO Q6HP PRN (Reason: Muscle Spasm) Qty: 30 0RF hydrocodone-acetaminophen 10-325 mg Tablet 1 - 2 tab PO Q4HP PRN (Reason: Per Pain Protocol) Qty: 20 0RF Continued loratadine [Claritin] 10 mg tablet 10 mg PO QAM 0RF ibuprofen 200 mg capsule 200 mg PO Q4HP PRN (Reason: Pain) 0RF montelukast 10 mg tablet 10 mg PO QHS 0RF potassium chloride 10 mEq capsule, extended release 10 meq PO DAILYP PRN (Reason: hypokalemia) 0RF Rx Instructions: Take with waterpill torsemide 20 mg tablet 10 mg PO DAILYP PRN (Reason: Edema) 0RF simvastatin 20 mg tablet 20 mg PO HS 0RF losartan 100 mg tablet 100 mg PO HS 0RF aspirin 325 mg tablet 325 mg PO HS 0RF Label Comments: HOLDING FOR SURGERY alprazolam 0.25 mg tablet 0.25 mg PO DAILYP PRN (Reason: Anxiety) 0RF colchicine 0.6 mg capsule 0.6 mg PO DAILYP PRN (Reason: GOUT) 0RF acetaminophen 500 MG tablet 500 - 1,000 mg PO BIDP PRN (Reason: Pain) 0RF estradiol 1 MG tablet 1 mg PO QAM 0RF dwzqklcf-xqki-RS-calcium-mins 1 TAB tablet 1 tab PO DAILY 0RF methocarbamol 500 mg Tablet 500 mg PO QHS 0RF potassium 99 mg Tablet 99 mg PO QAM 0RF Rx Instructions: Take when not taking waterpill omeprazole 20 mg Capsule,Delayed Release(Dr/Ec) 20 mg PO QAM 0RF magnesium 250 mg Tablet 500 mg PO QAM 0RF cholecalciferol (vitamin D3) [Vitamin D3] 25 mcg (1,000 unit) Capsule 25 mcg PO QAM 0RF levothyroxine 150 mcg Tablet 150 mcg PO QAMAC 0RF docusate sodium 100 mg Capsule 100 mg PO BID Qty: 60 0RF hydrocodone-acetaminophen 10-325 mg Tablet 1 - 2 tab PO Q4HP PRN (Reason: Per Pain Protocol) Qty: 75 0RF aspirin [Ecotrin Low Strength] 81 mg tablet,delayed release (DR/EC) 81 mg PO BID Qty: 60 0RF ondansetron HCl [Zofran] 4 mg Tablet 4 mg PO Q6H PRN (Reason: Nausea) Qty: 25 0RF Other Ambulatory Orders: Commode Discharge Order (ONCE) Location: None Selected Ordered By: Hudson Sumner Follow Up Plan Follow up with: Tiffanie Ortiz MD [Primary Care Provider] - 04/10/21 3:30 pm Oswaldo White PA-C [Physician Real Estate Closing Coordinator] - 04/04/21 8:00 am Patient Disposition: Home Health Service Prognosis: Fair Rehab Potential: Fair I certify that the patient requires SNF services: No Overall status at discharge: patient is progressing back to baseline Discharge Orders: Discharge Order (Routine); Ordered 03/27/21 Ordered By: Hudson Sumner Discharge Comment: Home with outpt Pt and OT. QUALITY VTE Deep Vein Thrombosis/Pulmonary Embolism Present on Admission: No
== END 2021-03-27 15:45 | disposition home health service (06) | DRG 641 ==
LOC: ED 04:31 → MEDSUR 09:40
PROVIDERS: ADMIT Internal Medicine; ATTEND Internal Medicine